=== PATIENT | male | born 1970 | race Caucasian/White ===

== ENCOUNTER → 2016-11-04 | Outpatient (CLI) | payer BC ==
[2016-11-04 08:51] VITALS: BP 157/87; PULSE 77; RESP 16; TEMP 97.6; BMI 50.3
--- NOTE | 2016-11-09 09:25 | P.GSHP ---
History of Present Illness H&P Date: 11/04/16 Chief Complaint: Morbid obesity BMI 50.4 Chief Complaint: Morbid obesity BMI 49.1 45 years old male with morbid obesity BMI 49.1, height 5 feet 8.5 inches, weight 148.68 KG presents for bariatric surgery consultation. Patient has elected to undergo laparoscopic Eliezer-en-Y gastric bypass .He has attended weight loss seminar. He has attempted nonsurgical weight loss with special diets and has lost some weight but is unable to maintain sustained results. His comorbid conditions include obstructive sleep apnea on CPAP, type 2 diabetes mellitus, hypertension, hypercholesterolemia. He is . He works in a psychiatric hospital. No children Preoperative visit #1, 06/17/2016, weight 148.6 KG, BMI 49.1 Preoperative visit #2, 11/09/2016, weight 152.5 KG, BMI 50.4 - Review of Systems Comment: Constitutional: Denies fever, weight loss or loss of appetite HEENT: No difficulty in vision or hearing. Denies dysphagia. Cardiovascular: Denies chest pain, palpitations, dizziness, shortness of breath. Respiratory: Long-standing asthma well controlled with rescue inhalers. Gastrointestinal: No recent change in bowel habits, no abdominal pain, no nausea or vomiting. Denies reflux symptoms and no postprandial right upper quadrant pain. Integumentary: No skin ulcers or rash Genitourinary: No urinary incontinence, hematuria or dysuria Neurologic: No seizures, denies weakness in upper or lower extremities Musculoskeletal: Knee pain, ankle pain and forefoot pain Past Medical History Past Medical History: Diabetes Mellitus, Hypertension, Osteoarthritis (OA), Sleep Apnea/CPAP/BIPAP Additional Past Medical History / Comment(s): USES CPAP. History of Any Multi-Drug Resistant Organisms: None Reported Past Surgical History: Appendectomy, Hernia Repair Additional Past Surgical History / Comment(s): Kidney stones, umbilical hernia repair Past Anesthesia/Blood Transfusion Reactions: No Reported Reaction Past Psychological History: No Psychological Hx Reported Smoking Status: Never smoker Past Alcohol Use History: Occasional Additional Past Alcohol Use History / Comment(s): 6 beers /month Past Drug Use History: None Reported - Past Family History Father Family Medical History: Cancer Additional Family Medical History / Comment(s): kidney stones Medications and Allergies Home Medications Medication Instructions Recorded Confirmed Type Liraglutide [Victoza 3-Dylan] 1.8 mg SQ DAILY 06/17/16 11/04/16 History Lisinopril [Prinivil] 20 mg PO DAILY 06/17/16 11/04/16 History Multivitamin [Men's Multi-Vitamin] 1 each PO DAILY 06/17/16 11/04/16 History Oxford-3 Fatty Acids/Fish Oil [Fish 1,000 mg PO DAILY 06/17/16 11/04/16 History Oil 1,000 mg Softgel] metFORMIN HCL [Glucophage] 1,000 mg PO BID 06/17/16 11/04/16 History Allergies Allergy/AdvReac Type Severity Reaction Status Date / Time No Known Allergies Allergy Verified 11/04/16 08:42 Surgical - Exam Vital Signs Temp Pulse Resp BP 97.6 F 77 16 157/87 11/04/16 08:43 11/04/16 08:43 11/04/16 08:43 11/04/16 08:43 General: Patient is alert and oriented to time, place and person and cooperative with exam. He is not in acute distress. HEENT: No pallor, no icterus, no thyroid enlargement, no cervical lymphadenopathy. Chest: Bilateral equal breath sounds present. No wheezes, no crackles. Cardiovascular: Regular rate and rhythm. Abdomen: Soft, nontender, nondistended. No right upper quadrant tenderness. Integumentary: Bilateral lower extremity chronic venous dermatitis. No active ulcers or discharge. Neurologic: Cranial nerves II-XII intact. Strength upper and lower extremities 5/5. No focal neurologic deficits. Gait is normal. Psychiatric: No anxiety or psychosis. No suicidal thoughts. Assessment and Plan (1) Hypertension Status: Acute (2) Morbid obesity with BMI of 45.0-49.9, adult Status: Acute (3) Type 2 diabetes mellitus Status: Acute (4) Sleep apnea Status: Acute (5) Sleep apnea with use of continuous positive airway pressure (CPAP) Status: Acute Plan: 1. A detailed discussion was held about the risks, benefits and potential complications of laparoscopic Eliezer-en-Y gastric bypass ncluding bleeding, infection, anastomosis leak, stenosis, DVT and PE. Patient demonstrated understanding and willing to undergo the procedure. Patient was explained about high-protein liquid diet 2 weeks prior to surgery 2. Formal Dietitian consult pending. Patient does snack often at night. He was recommended to drink protein shakes for snacks. I discussed about reducing the portion size, limiting refined carbohydrates and sugar and increase protein intake 3. Esophagogastroduodenoscopy with antral biopsy- chronic gastritis. H. pylori negative. No hiatal hernia 4. Baseline lab work ordered. 12-lead EKG ordered 5. Audio Visual Tech's recommendations and clearance awaited 6. Psychiatrist/ psychologist's recommendations noted 7. VTE risk score is 14. Patient will need perioperative and postoperative prophylactic low molecule weight heparin for VTE prophylaxis 8. A copy of surgical consent was given to the patient for review. Scheduled for laparoscopic Eliezer-en-Y gastric bypass on 11/16/[address] Rousseau to assist
== END | disposition home or self-care (01) ==
LOC: BARWHC3 08:36
PROVIDERS: ATTEND Surgery
DX: E66.01 Morbid (severe) obesity due to excess calories (principal); G47.30 Sleep apnea, unspecified; E11.9 Type 2 diabetes mellitus without complications; I10 Essential (primary) hypertension; Z68.42 Body mass index [BMI] 45.0-49.9, adult; Z79.4 Long term (current) use of insulin; Z79.899 Other long term (current) drug therapy
CPT/HCPCS: 99211

== ENCOUNTER → 2016-11-09 | Outpatient (CLI) | payer BC ==
[2016-11-09 11:41] VITALS: BMI 47.6
== END | disposition home or self-care (01) ==
LOC: BARWHC3 08:40
PROVIDERS: ATTEND Surgery
DX: E66.01 Morbid (severe) obesity due to excess calories (principal); Z71.3 Dietary counseling and surveillance; Z68.42 Body mass index [BMI] 45.0-49.9, adult
CPT/HCPCS: 97804

== ENCOUNTER → 2016-11-09 | Outpatient (CLI) | payer BC ==
[2016-11-09 12:45] LABS: Basophils % (A) 0 %; CH 28.1; Eosinophils # (A) 0.1 k/uL (0-0.7); Eosinophils % (A) 1 %; HCT 46.1 % (39.0-53.0); HGB 15.5 gm/dL (13.0-17.5); Luc # (Auto) 0.16; Luc % (Auto) 2; Lymphocytes # (A) 2.3 k/uL (1.0-4.8); Lymphocytes % (A) 28 %; MCH 27.7 pg (25.0-35.0); MCHC 33.5 g/dL (31.0-37.0); MCV 82.8 fL (80.0-100.0); Mean Platelet Volume 6.6; Monocytes # (A) 0.5 k/uL (0-1.0); Monocytes % (A) 6 %; Neutrophils # (A) 5.3 k/uL (1.3-7.7); Neutrophils % (A) 63 %; RBC 5.57 m/uL (4.30-5.90); RDW 14.1 % (11.5-15.5); WBC 8.3 k/uL (3.8-10.6); WBC (Perox) 8.47
[2016-11-09 12:54] LABS: ALT 64 U/L (21-72); AST 51 U/L (17-59); Alkaline Phosphatase 43 U/L (38-126); Anion Gap 12 mmol/L; Blood Urea Nitrogen 19 mg/dL (9-20); Calcium 10.2 mg/dL (8.4-10.2); Carbon Dioxide 25 mmol/L (22-30); Chloride 99 mmol/L (98-107); Glucose 101 mg/dL (74-99); Non-African American GFR(MDRD) >60 (>60 ml/min/1.73 sqM); Potassium 4.5 mmol/L (3.5-5.1); Sodium 136 mmol/L (137-145); Total Bilirubin 0.9 mg/dL (0.2-1.3); Total Protein 8.2 g/dL (6.3-8.2)
== END | disposition home or self-care (01) ==
LOC: LABPAT 12:06
PROVIDERS: ATTEND Surgery
DX: Z01.818 Encounter for other preprocedural examination (principal)
CPT/HCPCS: 80053; 85025

== ENCOUNTER 2016-11-16 10:21 | Inpatient (IN) | payer BC ==
[~2016-11-16 10:21] MED LIST: DEXAMETHASONE SOD PHOSPHATE 10 MG/ML 1 ML VIAL IV ONE; HYDROmorphone 1 MG/ML 1 ML SYRINGE IVP PRN; LIDOCAINE 1% 20 ML VIAL (10MG/ML) FOR IV START INTRADERMA PRN; MIDAZOLAM 2 MG/2 ML VIAL IV PRN; ONDANSETRON 4 MG/2 ML VIAL IVP ONE; SCOPOLAMINE 1.5MG/72HR PATCH TRANSDERM ONE; ceFAZolin 3 GM in SODIUM CHLORIDE 0.9% 100 ML IVPB ONE
[2016-11-16] MEDS: LACTATED RINGERS 1,000 ML IV SCH (10:46)
[2016-11-16 10:52] LABS: Glucose,Whole Blood 90 mg/dL (75-99)
[2016-11-16] MEDS ORDERED: CHLORHEXIDINE GLUCONATE 15 ML CUP MUCOUS MEM ONE (10:56)
[2016-11-16] MEDS ORDERED: AMPICILLIN-SULBACTAM 3 GM in SODIUM CHLORIDE 0.9% 100 ML IVPB ONE (10:56)
[2016-11-16] MEDS ORDERED: ENOXAPARIN 40 MG/0.4 ML SYRINGE SQ STA (11:00)
[2016-11-16] MEDS ORDERED: PANTOPRAZOLE 40 MG/10 ML VIAL IV STA (11:00)
[2016-11-16] MEDS ORDERED: MIDAZOLAM 2 MG/2 ML VIAL ONE (13:35)
[2016-11-16] MEDS ORDERED: ROCURONIUM BROMIDE 10 MG/ML 10 ML VIAL IV ONE (13:35)
[2016-11-16] MEDS ORDERED: SUCCINYLCHOLINE CHLORIDE 100 MG/5 ML SYR IV ONE (13:35)
[2016-11-16] MEDS ORDERED: HYDROmorphone (PF) 1 MG/ML ONE (13:35)
[2016-11-16] MEDS ORDERED: PHENYLEPHRINE-0.9% NACL SYG 1 MG/10 ML SYRINGE ONE (13:35)
[2016-11-16] MEDS ORDERED: fentaNYL (PF) 50 MCG/ML 2 ML AMP ONE (13:35)
[2016-11-16] MEDS ORDERED: LIDOCAINE 1% INJ 10MG/ML (20 ML MDV) ONE (13:35)
[2016-11-16] MEDS ORDERED: GLYCOPYRROLATE 0.2 MG/ML 2 ML VIAL ONE (13:35)
[2016-11-16] MEDS ORDERED: NEOSTIGMINE 1 MG/ML 10 ML VIAL ONE (13:35)
[2016-11-16] MEDS ORDERED: PROPOFOL 10 MG/ML 20 ML VIAL IV ONE (13:35)
[2016-11-16] MEDS ORDERED: BUPIVACAIN-EPI 0.25%-1:200,000 30 ML VIAL SQ ONE (14:03)
[2016-11-16] MEDS ORDERED: LACTATED RINGERS 1,000 ML IV ONE (15:58)
[2016-11-16] MEDS ORDERED: HYOSCYAMINE ORAL DROPS 1.875 MG/15 ML BOTTLE PO PRN (16:49)
[2016-11-16] MEDS ORDERED: diphenhydrAMINE 50 MG/ML 1 ML VIAL IVP PRN (16:49)
[2016-11-16] MEDS ORDERED: ONDANSETRON 4 MG/2 ML VIAL IVP PRN (16:49)
[2016-11-16] MEDS ORDERED: NALOXONE 0.4 MG/ML 1 ML VIAL IV PRN (16:49)
[2016-11-16] MEDS ORDERED: SIMETHICONE 40 MG/0.6 ML DROPS 2,000 MG/30 ML BOTTLE PO PRN (16:49)
[2016-11-16] MEDS ORDERED: ONDANSETRON 4 MG/2 ML VIAL IVP ONE (17:09)
[2016-11-16 17:12] LABS: Glucose,Whole Blood 177 mg/dL (75-99)
[2016-11-16] MEDS ORDERED: INSULIN LISPRO (humaLOG) 300 UNIT/3 ML VIAL SQ ONE (17:13)
[2016-11-16] MEDS: ACETAMINOPHEN IV (For NPO) 1,000 MG in EMPTY BAG 1 BAG IVPB ONE ×2 (17:29→17:43)
[2016-11-16] MEDS: HYDROmorphone 1 MG/ML 1 ML SYRINGE IVP PRN ×2 (18:25→21:37)
[2016-11-16 20:19] LABS: Glucose,Whole Blood 142 mg/dL (75-99)
[2016-11-16] MEDS: ALBUTEROL NEBULIZED 2.5 MG/3 ML INHALATION SCH (20:31)
[2016-11-16 22:30] VITALS: BMI 47.4
[2016-11-17] MEDS: metFORMIN 500 MG TAB PO SCH ×3 (00:31→18:25)
[2016-11-17] MEDS: HYDROmorphone 1 MG/ML 1 ML SYRINGE IVP PRN ×6 (00:32→21:41)
[2016-11-17 08:29] LABS: Basophils % (A) 0 %; CH 28.1; CHCM 34.2; Eosinophils % (A) 0 %; HCT 38.4 % (39.0-53.0); HGB 12.8 gm/dL (13.0-17.5); Luc # (Auto) 0.13; Luc % (Auto) 1; Lymphocytes # (A) 1.1 k/uL (1.0-4.8); Lymphocytes % (A) 10 %; MCH 27.5 pg (25.0-35.0); MCHC 33.3 g/dL (31.0-37.0); MCV 82.7 fL (80.0-100.0); Mean Platelet Volume 6.4; Monocytes # (A) 0.6 k/uL (0-1.0); Monocytes % (A) 6 %; Neutrophils # (A) 9.1 k/uL (1.3-7.7); Neutrophils % (A) 83 %; RBC 4.65 m/uL (4.30-5.90); RDW 14.1 % (11.5-15.5); WBC (Perox) 11.01
[2016-11-17 08:39] LABS: Anion Gap 10 mmol/L; Blood Urea Nitrogen 14 mg/dL (9-20); Calcium 8.9 mg/dL (8.4-10.2); Carbon Dioxide 22 mmol/L (22-30); Chloride 105 mmol/L (98-107); Magnesium 1.9 mg/dL (1.6-2.3); Non-African American GFR(MDRD) >60 (>60 ml/min/1.73 sqM); Phosphorous 2.8 mg/dL (2.5-4.5); Potassium 4.3 mmol/L (3.5-5.1); Sodium 137 mmol/L (137-145)
[2016-11-17 08:46] LABS: Glucose,Whole Blood 113 mg/dL (75-99)
[2016-11-17] MEDS ORDERED: NON-FORMULARY DRUG (Omega-3 Fatty Acids/Fish Oil [Fish Oil 1,000 Mg Softgel] 1 CAP) PO SCH (09:00)
[2016-11-17] MEDS: INSULIN LISPRO (humaLOG) 300 UNIT/3 ML VIAL SQ SCH ×4 (09:04→21:43)
[2016-11-17] MEDS: ALBUTEROL NEBULIZED 2.5 MG/3 ML INHALATION SCH ×4 (09:27→20:47)
--- NOTE | 2016-11-17 09:31 | FL ---
Single contrast upper GI EXAMINATION TYPE: FL UGI DATE OF EXAM: 11/17/2016 9:26 AM CLINICAL HISTORY: Status post Eliezer-en-Y gastric bypass COMPARISON: NONE Contrast: Omnipaque 350 50 mL The patient ingested contrast without difficulty or delay. Noted are postsurgical changes of Eliezer-en -Y gastric bypass. There is no evidence for leak or obstruction. Drainage catheter is in place. IMPRESSION: Post-surgical change of Eliezer-en-Y gastric bypass without evidence for obstruction or greg k at this point in time.
[2016-11-17] MEDS: LACTATED RINGERS 1,000 ML IV SCH ×4 (09:50→20:54)
[2016-11-17] MEDS: HYDROcodone/APAP 15 ML SOLUTION PO PRN ×2 (10:29→18:27)
[2016-11-17] MEDS: LISINOPRIL 20 MG TAB PO SCH (10:30)
[2016-11-17] MEDS: ENOXAPARIN 40 MG/0.4 ML SYRINGE SQ SCH ×2 (10:30→20:55)
[2016-11-17] MEDS: PANTOPRAZOLE 40 MG/10 ML VIAL IV SCH (10:31)
--- NOTE | 2016-11-17 10:44 | CONS ---
DATE OF CONSULTATION: 11/16/2016 REASON FOR CONSULTATION: Medical management requested by Dr. Montoya. CONSULTATION: This is a pleasant 46-year-old patient of Dr. Jacquelin Mccoy who has undergone a laparoscopic Eliezer-en-Y gastric bypass surgery. Patient also underwent lysis of adhesions. Post procedure, patient's is at the bedside. Having some pain, nausea, vomiting. Patient's chronic stable medical conditions include diabetes, hypertension, osteoarthritis, sleep apnea, uses CPAP machine and kidney stones. Currently no nausea or vomiting. REVIEW OF SYSTEMS: CONSTITUTIONAL: Tired. HEENT: None. RESPIRATORY: None. CARDIOVASCULAR: None. GASTROINTESTINAL: Abdominal pain. GENITOURINARY: None. MUSCULOSKELETAL: Pain in different joints. DERMATOLOGICAL: None. HEMATOLOGICAL: None. LYMPHATIC: None. PSYCHIATRY: None. NEUROLOGICAL: None. PAST HISTORY: Diabetes, hypertension, osteoarthritis, obstructive sleep apnea with CPAP, kidney stones. PAST SURGICAL HISTORY: Appendectomy, hernia repair, surgery for kidney stones, umbilical hernia repair. SOCIAL HISTORY: No smoking. Alcohol occasionally, that is six beers a month. Patient is employed. . FAMILY HISTORY: Cancer and kidney stones. HOME MEDICATIONS: 1. Glucophage 1000 mg p.o. b.i.d. 2. Fish oil 1 capsule p.o. daily. 3. Men's multivitamin 1 tablet p.o. daily. 4. Prinivil 20 mg p.o. daily. 5. Victoza 3-evert 1.8 mg subcu daily. ALLERGIES: None. On examination, temperature 98.4, pulse 76, respirations 16, blood pressure 119/58, pulse ox 95% on 3 L. GENERAL APPEARANCE: Obese, body mass index 43.6, lying in bed, awake. EYES: Pupils equal. Conjunctivae normal. HEENT: Oral cavity normal. NECK: Thick, short. JVD unable to assess. Mass not palpable. RESPIRATORY: Effort increased. LUNGS: Distant breath sounds. CARDIOVASCULAR: Heart sounds muffled. No edema. LYMPHATIC: No lymph node palpable in neck or axillae. PSYCHIATRY: Alert and oriented x3. Mood and affect normal. NEUROLOGICAL: Pupils equal. Cranial nerves grossly intact. Power and sensation ( ). ABDOMEN: Diffusely tender. Bowel sounds are sluggish. Liver and spleen not palpable. INVESTIGATIONS: Accu-Cheks are noted. ASSESSMENT: 1. Eliezer-en- Y gastric bypass surgery with lysis of adhesions. 2. Diabetes mellitus type 2. 3. Essential hypertension. 4. Obstructive sleep apnea. 5. Morbid obesity; body mass index of 43.6. PLAN: Diet will be advanced per Dr. Montoya. Accu-Cheks will be followed. Given that patient is not eating, we will hold off the Glucophage for right now. Patient may ( ) I reviewed his Prinivil and Victoza. Do expect sugars to eventually start coming down as patient loss weight and remains on a liquid diet. Care was discussed with the patient in detail and the . Thank you Dr. Montoya.
--- NOTE | 2016-11-17 10:57 | P.OP ---
Date of Procedure: 11/16/16 Preoperative Diagnosis: Morbid obesity BMI 50 Type 2 DM Obstructive sleep apnea Hypertension Hypercholesterolemia Postoperative Diagnosis: Morbid obesity BMI 50 Type 2 DM Obstructive sleep apnea Hypertension Hypercholesterolemia Umbilical hernia Procedure(s) Performed: Laparoscopic Eliezer -en Y gastric bypass Intraop EGD Laparoscopic lysis of adhesions Anesthesia: joanne GREWAL Surgeon: Catrina Montoya Computer Assembler #1: Roxy Severino Estimated Blood Loss (ml): 30 Pathology: none sent Condition: other (ASA 3) Disposition: PACU Indications for Procedure: 46 years old male with morbid obesity BMI more than 50 presents for laparoscopic Eliezer-en-Y gastric bypass. His comorbid conditions include type 2 diabetes mellitus, hypertension, hypercholesterolemia, obstructive sleep apnea on CPAP. Informed consent obtained and patient elected to undergo laparoscopic Eliezer-en-Y gastric bypass, possible open with intraoperative EGD. The risks, benefits and potential complications including bleeding, infection, anastomosis leak were discussed and patient elected to undergo the procedure Description of Procedure: The patient was brought to the operating room and placed in supine position with both arms out. General anesthesia with endotracheal intubation was performed as per anesthesia team. A Brown catheter was inserted using sterile aseptic precautions. Bilateral lower extremity SCDs were placed. Patient was secured to the operating table using to secure straps and a footboard was placed. Chlorhexidine was used to prep the skin followed by sterile drapes and [place]. A timeout was performed to verify correct patient and correct procedure. Patient was confirmed to receive perioperative IV antibiotics and Lovenox subcutaneous injection for VTE prophylaxis. A 1.5 cm skin incision was made in the left anterior axillary line below the costal margin and pneumoperitoneum was established to a pressure of 15 mm of Hg using a Veress needle. Patient tolerated the pneumoperitoneum well. A 10 mm trocar was loaded on a 5 mm 30 laparoscope and peritoneal cavity was entered using the Optiview technique. Additional 10 mm trocar was placed inferior and left of the umbilicus for a camera . Two 10 mm trocars working ports were placed : one at the level of falciform and the other in right lower quadrant. There were omental adhesions to anterior abdominal wall and umbilical hernia identified containing omentum which was reduced. At the site of prior open appendicectomy in right lower quadrant there were multiple bowel loops which were gently taken down using a combination of sharp dissection. The small bowel was run from ligament of Treitz to terminal ileum to ensure there was no kinks or adhesions. The abdominal cavity was inspected. Attention was directed towards creation of jejunojejunostomy. The omentum was reflected towards the upper abdomen and the transverse colon identified. The transverse mesocolon was elevated and ligament of Treitz identified. The small bowel was run 65 cm distal to the ligament of Treitz and was divided using Ethicon stapler 60 white load. There was noted bleeding noted from the cut end of the mesentery which was controlled with application of endoclips. A [place] drain was attached to the distal limb. The small bowel was run 130 cm distally from this point. It was oriented in C- configuration to avoid any torsion or kink. A seromuscular stitch of 3-0 silk was placed between the BP limb and the Eliezer limb to act as a traction suture. Controlled enterotomy was created in either small bowel limb using monopolar function of LigaSure advance. Care was taken not to backwall the bowel. Covidien stapler 60 mendoza load was fired in antegrade direction to create a bowy-mz-ifak jejunojejunostomy. Additional seromuscular stitch of 3-0 silk was placed which acted as a distal stay suture . Covidien stapler 45 mendoza load was fired in retrograde direction to create a 90 mm llmm-no-ilzw anastomosis. The 2 stay sutures were pulled up and final enterotomy was closed using Covidien stapler 60 mendoza load. The anastomosis was patent and without any tension. There was some bleeding noted from the staple line which was controlled with endoclips. The greater omentum was divided using LigaSure . Patient was then placed in reverse Trendelenburg. A 5 mm incision was made in the epigastrium to insert the liver retractor to retract the left lobe of the liver. There were scar tissue and stitches from prior lap band surgery. Decision was made to go distal to this suture line to create a long narrow pouch The angle of His was bluntly mobilized using retrogastric tunneling device .Fenestrated graspers were used to bluntly dissect and create retrogastric tunnel. Covidien 60 staplepurple load was fired . Additional two purple 60mm loads were used to create a 50 ml gastric pouch . A 25 mm Orvil was passed per orally by the anesthesia team. The orogastric blunt tip of the Orvil was positioned anterior to the staple line. A controlled opening was made in the gastric pouch using the monopolar function and Orvil tip was exteriorized. The orogastric tube was pulled without any tension till the Orvil stapler was identified. The suture was cut and the remaining tube was removed from the abdomen. The previously placed Rosa drain was identified and the Eliezer limb was brought up to the gastric pouch without any undue tension. The small bowel was opened up and left upper quadrant trocar site was upsized to a 15 mm. The 25 mm EEA was inserted into the abdomen after dilating the track with Suzie clamp. The EEA was easily inserted via the cut end of the Eliezer limb. The stapler was gradually opened till the orange ring was identified. The EEA stapler was fired after both ends of the stapler were locked in position and closed. The EEA was then removed from the abdomen. Both the anastomotic donuts were complete. A 60 mm Ethicon white load was used to divide the open end of the Eliezer limb. This segment of the small bowel along with Rosa drain was placed in an Endo Catch bag and was removed from the abdomen. A 15 mm balloon trocar was inserted to re-create pneumoperitoneum. The gastrojejunostomy anastomosis not show any evidence of kink or torsion. Using continuous sutures of 3-0 silk, the Warner defect between the transverse mesocolon and Eliezer limb was closed. The C loop configuration of Eliezer limb was checked. The mesentery defect between the jejunojejunostomy was closed using continuous sutures of 3-0 silk. This is to prevent potential internal hernias. An empty staple cartridge was placed distal to the gastrojejunostomy in the Eliezer limb. Dr. Severino proceeded with esophagogastrojejunoscopy. The abdominal cavity was filled with normal saline. No evidence of staple line bleeding. Both the afferent and efferent limbs of small bowel could be easily intubated. No anastomotic stricture. No air leak No air leak identified. The anastomosis was widely patent. The scope was then removed after suctioning the excess air. Tisseal was applied over the staple line. The 15 mm trocar site was closed with 2 trans-fascial stitches of 0 Vicryl which was placed using a Lonnie Mary device. The trocar site was copiously irrigated with 1 L of normal saline. All the trocar sites were closed with interrupted sutures of 3-0 Vicryl followed by running subcuticular stitches of 4-0 Monocryl. Dermabond skin glue was applied. The sponge, instrument and needle count were correct x2. Patient tolerated the procedure well and was taken to post anesthesia care unit in stable condition
[2016-11-17 12:18] LABS: Glucose,Whole Blood 142 mg/dL (75-99)
[2016-11-17] MEDS: MULTIVITAMINS, THERA 1 EACH TAB PO SCH (13:11)
[2016-11-17 17:35] LABS: Glucose,Whole Blood 124 mg/dL (75-99)
[2016-11-17 21:43] LABS: Glucose,Whole Blood 141 mg/dL (75-99)
[2016-11-18] MEDS: HYDROmorphone 1 MG/ML 1 ML SYRINGE IVP PRN ×2 (01:54→06:52)
[2016-11-18] MEDS: HYDROcodone/APAP 15 ML SOLUTION PO PRN ×4 (03:48→22:14)
[2016-11-18] MEDS: LACTATED RINGERS 1,000 ML IV SCH (04:02)
--- NOTE | 2016-11-18 06:30 | PN ---
DATE OF SERVICE: 11/17/2016 REASON FOR ADMISSION: Medical management requested by Dr. Montoya. INTERVAL HISTORY: This is a 46-year-old male who is status post laparoscopic Eliezer-en-Y gastric bypass surgery. Today patient is resting comfortably in bed, family at the bedside. No acute distress noted or voiced. Had a discussion regarding patient's insulin and the choices that were going to be made, Lantus versus home dose of oral medications. Patient is otherwise alert and oriented. No acute distress noted or voiced. Review of systems done for cardiovascular, GI, pulmonary with relevant findings as above. CURRENT MEDICATIONS: [place], albuterol sulfate, Lovenox, Dilaudid, hyoscyamine, Protonix. ( )
[2016-11-18] MEDS ORDERED: RX INFO: IV CONTRAST WAS GIVEN 1 EACH MISC MISCELLANE PRN (06:57)
--- NOTE | 2016-11-18 07:15 | PN ---
DATE OF SERVICE: 11/17/2016 REASON FOR ADMISSION: Medical management status post laparoscopic Eliezer-en-Y gastric bypass requested by Dr. Montoya. INTERVAL HISTORY: This is a 46-year-old male who has undergone a laparoscopic Eliezer-en-Y gastric bypass surgery. Today patient is awake, alert, lying in bed. No acute distress noted or voiced. No complaints. Discussion was held regarding Lantus versus Victoza and what our plan was for that. Lantus will be added to patient's regimen. Currently no nausea or vomiting. No acute distress noted or voiced. Review of systems done for constitutional, cardiovascular, GI, pulmonary with relevant findings as above. CURRENT MEDICATIONS: Albuterol, Benadryl, Lovenox, Dilaudid, Humalog, Zestril. PHYSICAL EXAMINATION: VITAL SIGNS: Temperature 97.0, pulse 90, respirations 24, blood pressure 121/77, oxygen saturation 92% on room air EYES: Pupils equal. Conjunctivae normal. NECK: JVD not raised. Mass not palpable. LUNGS: Distant bilaterally. RESPIRATORY: Effort normal, unlabored. CARDIOVASCULAR: First and second sounds noted. No edema. ABDOMEN: Soft, diffusely tender bowel sounds are sluggish. Liver and spleen not palpable. PSYCHIATRY: Alert and oriented x3. Mood and affect are appropriate for the situation. INVESTIGATIONS: White blood cell count 11.0, hemoglobin 12.8, platelet count 248, sodium 137, potassium 4.3, BUN 14, creatinine 0.87, glucose 142. ASSESSMENT: 1. Eliezer-en-Y gastric bypass surgery with lysis of adhesions. 2. Diabetes mellitus, type 2. 3. Essential hypertension. 4. Obstructive sleep apnea. 5. Morbid obesity; body mass index of 43.6. PLAN: Diet will be advanced per Dr. Dr. Montoya. Accu-Cheks will be followed. Due to the fact the patient continues to not eat food, we will hold Glucophage for right now. Will add Lantus insulin as well. Overall we expect her sugars eventually just fall in line as patient loses weight and continues on a liquid diet. Plan of care was discussed with the patient and family in detail. Patient was seen and examined by a nurse practitioner, Lina Curtis, and all elements of the case discussed with attending, Dr. Lopez.
[2016-11-18] MEDS ORDERED: BISACODYL 5 MG TABLET.DR PO PRN (08:00)
[2016-11-18] MEDS: INSULIN LISPRO (humaLOG) 300 UNIT/3 ML VIAL SQ SCH ×4 (08:08→20:29)
[2016-11-18 08:16] LABS: Glucose,Whole Blood 98 mg/dL (75-99)
[2016-11-18] MEDS: ALBUTEROL NEBULIZED 2.5 MG/3 ML INHALATION SCH ×4 (08:53→21:39)
--- NOTE | 2016-11-18 09:43 | CT ---
CT CHEST FOR PULMONARY EMBOLISM. EXAMINATION TYPE: CT angio chest DATE OF EXAM: 11/18/2016 8:46 AM INDICATION: Low oxygen sats, diaphoresis CT DLP: 687 mGycm, Automated exposure control for dose reduction was used. CONTRAST: Patient injected with 100 mL of Omnipaque 350. COMPARISON: NONE TECHNIQUE: CT of the chest is performed on a spiral scan at 2 mm thick sections. Study is performed with intravenous contrast timed for evaluation for pulmonary embolism. This will limit additional po rtions of the evaluation. 3-D MIP images reconstructed by the technologist are reviewed on the compu ter in the coronal and sagittal planes. FINDINGS: Opacification is suboptimal for pulmonary embolism evaluation. There is a suggestion of a partial harry ling defect within the left upper lobe pulmonary artery. Series 4 image 41. This could suggest some u nderlying segmental pulmonary artery thrombus. This potentially could be chronic. No mediastinal or hilar adenopathy enlarged by CT criteria is evident. The ascending aorta diameter at the level of the main pulmonary artery is 3.9 cm. The main pulmonary artery diameter at the bifur cation is 3.5 cm. There is a consolidation within the posterior medial right apex. There are cysts stranding areas of o pacity at the bilateral lung bases and within the lingula. Small bilateral pleural effusions are pres ent. Limited CT section through the upper abdomen are unremarkable. IMPRESSIONS: 1. Contrast timing is suboptimal for pulmonary artery thrombus evaluation. Obvious large filling defe cts are not evident. Small segmental and subsegmental defects potentially in the left upper lobe may be present. Chronic pulmonary emboli are not excluded from the differential. 2. Small bilateral pleural effusions with bibasilar streak atelectasis. 3. Consolidation medial right upper lobe. Correlate for atelectasis versus pneumonia.
[2016-11-18] MEDS: ENOXAPARIN 40 MG/0.4 ML SYRINGE SQ SCH ×2 (09:46→20:29)
[2016-11-18] MEDS: OXYMETAZOLINE 0.05% NASL SPRAY 15 ML NASAL SCH ×3 (09:46→22:14)
[2016-11-18] MEDS: PANTOPRAZOLE 40 MG/10 ML VIAL IV SCH (09:47)
[2016-11-18] MEDS: LISINOPRIL 20 MG TAB PO SCH (09:47)
[2016-11-18] MEDS: metFORMIN 500 MG TAB PO SCH (09:47)
[2016-11-18] MEDS ORDERED: OXYMETAZOLINE 0.05% NASL SPRAY 15 ML ONE (09:55)
--- NOTE | 2016-11-18 10:24 | PN ---
DATE OF SERVICE: 11/17/2016 PRESENTING COMPLAINT: Eliezer-en-Y gastric bypass surgery. INTERVAL HISTORY: Patient is status post Eliezer-en-Y gastric bypass surgery, tolerating clear liquids, is at the bedside. Patient has been in and out of bed. No nausea or vomiting. Review of systems done for constitutional, cardiovascular, GI, pulmonary; relevant findings as above. Current medications are reviewed. On examination, temperature 97, pulse 90, respirations 16, blood pressure 121/77, pulse ox 92% on room air. GENERAL APPEARANCE: Lying in bed, comfortable. EYES: Pupils equal, conjunctivae normal. NECK: JVD not raised. Mass not palpable. RESPIRATORY: Effort increased. LUNGS: Decreased breath sounds. CARDIOVASCULAR: Heart sounds muffled, edema. ABDOMEN: Soft. Mild tenderness. PSYCH: Alert and oriented x3. Mood and affect is normal. INVESTIGATIONS: White count 11, hemoglobin 12.8, potassium 4.3. ASSESSMENT: 1. Eliezer-en-Y gastric bypass surgery with lysis of adhesions. 2. Diabetes mellitus type 2, on oral hypoglycemic. 3. Essential hypertension. 4. Obstructive sleep apnea. 5. Morbid obesity, body mass index of 43.6. PLAN: Care was discussed with the patient and . Did talk about glucose control. Patient's Glucophage is being discontinued. The patient may take the insulin Victoza. Will give 12 units of Lantus and keep an eye on the sugars. Thank you, Dr. Montoya.
[2016-11-18 12:14] LABS: Glucose,Whole Blood 145 mg/dL (75-99)
--- NOTE | 2016-11-18 12:44 | PN ---
DATE OF SERVICE: 11/18/2016 PRESENTING COMPLAINT: Short of breath. INTERVAL HISTORY: This is a patient status post Eliezer-en-Y gastric bypass surgery. Early this morning I was called and patient was slightly short of breath and congested. I ordered some Afrin spray. The patient's pulse ox did drop. I was concerned for PE so I ordered a CT chest. Patient is awaiting the results. is at the bedside. Review of systems done for constitutional, cardiovascular, GI, pulmonary; relevant findings as above. The patient is on clear liquids. Current medications are reviewed. On examination, temperature 98.2, pulse 84, respirations 16, blood pressure 162/105, pulse ox 90% on 6 L. GENERAL APPEARANCE: Sitting up edge of the bed, tired appearing. EYES: Pupils equal. Conjunctivae normal. NECK: JVD unable to assess. Mass not palpable. RESPIRATORY: Effort increased. LUNGS: Distant breath sounds. CARDIOVASCULAR: Heart sounds muffled, no edema. ABDOMEN: Mild tenderness, soft. Bowel sounds are present. PSYCHIATRY: Alert and oriented x3. Mood and affect normal. INVESTIGATIONS: Accu-Cheks are noted. ASSESSMENT: 1. Shortness of breath and decrease in pulse ox. This could be simply from ( ), but at the same time I need to rule out a pulmonary embolism. 2. Eliezer-en-Y gastric bypass surgery with lysis of adhesions. 3. Diabetes mellitus type 2. 4. Essential hypertension. 5. Obstructive sleep apnea. 6. Morbid obesity, body mass index 43.6. 7. Possibly obesity hypoventilation syndrome. PLAN: CT scan of the chest has been ordered. Other medications and treatment plans to continue. Care was discussed with patient and and did talk to Dr. Montoya.
[2016-11-18] MEDS: MULTIVITAMINS, THERA 1 EACH TAB PO SCH (13:03)
--- NOTE | 2016-11-18 13:20 | XR ---
EXAMINATION TYPE: XR chest 2V DATE OF EXAM: 11/18/2016 12:07 PM COMPARISON: NONE INDICATION: Short of breath TECHNIQUE: Single frontal view of the chest is obtained. FINDINGS: The heart size is normal. The pulmonary vasculature is normal. Posterior left lung base infiltrate appears to be present. Minimal left pleural effusion may be prese nt. Lungs are otherwise clear. IMPRESSION: 1. Left lower lobe infiltrate. Correlate for atelectasis and pneumonia. Small left pleural effusion m ay be present.
[2016-11-18] MEDS ORDERED: hydrALAZINE HCL 20 MG/ML 1 ML VIAL IVP STA (15:08)
--- NOTE | 2016-11-18 16:01 | P.PN ---
Subjective 46-year-old male being seen and examined is postop day 2 laparoscopic renu-en-y gastric bypass for morbid obesity BMI 50 procedure done on October 17 patient did undergo an upper GI and the it showed no evidence of obstruction or leak patient developed on November 18 an episode of low oxygen saturation feeling diaphoretic. CAT scan of the chest was ordered. And a pulmonary consultation requested. There are small bilateral pleural effusions with atelectasis bilaterally. Currently patient is sitting up on the edge of the bed and with coaching can achieve 1500 on the incentive spirometer. Pulse ox sat on 4 L showing 91% patient states breathing feels improved Objective - Vital Signs Vital signs: Vital Signs Temp 97.1 F L 11/18/16 15:03 Pulse 103 H 11/18/16 15:03 Resp 20 11/18/16 11:08 BP 172/105 11/18/16 15:03 Pulse Ox 91 L 11/18/16 15:03 Intake & Output 11/17/16 11/18/16 11/18/16 18:59 06:59 18:59 Intake Total 750 1000 Balance 750 1000 Weight 150 kg Intake: Intake, IV Titration 750 700 Amount Lactated Ringers 1,000 ml 750 700 @ 100 mls/hr IV .Q10H NIRMAL Rx#:[id number] Oral 300 Other: Voiding Method Toilet # Voids 1 - Exam Physical exam 46-year-old male postop gastric bypass surgery pleasant oriented 3 appearing in no acute distress Lungs diminished at the bases sitting up on the edge of the bed using an incentive spirometer can achieve 1500 states breathing feels improved currently on a nasal cannula 4 L no cough noted Heart S1-S2 audible and regular Abdomen obese soft nontender surgical sites benign no redness states passing gas no difficulty in urinating tolerating the diet Extremities no edema noted - Labs CBC & Chem 7: 11/17/16 07:36 11/17/16 07:36 Labs: Abnormal Lab Results - Last 24 Hours (Table) 11/17/16 11/17/16 11/18/16 Range/Units 17:23 21:31 12:12 POC Glucose (mg/dL) 124 H 141 H 145 H (75-99) mg/dL Assessment and Plan Plan: Impression Postop 16 of November laparoscopic renu-en-y gastric bypass with lysis of adhesions for morbid obesity BMI 50 Obstructive sleep apnea with CPAP therapy Hyperlipidemia Hypertension essential benign Dyslipidemia Type 2 diabetes on an oral hypoglycemic agent at home CAT scan of the chest for low oxygen saturation done on November 18 no evidence of acute pulmonary emboli Plan Await pulmonology's eval Resume home meds as appropriate Encourage the use of the incentive spirometer use every 1 hour while awake Encourage patient to increase activity level Continue current aerosol bronchodilators DVT and GI prophylaxis Monitor blood sugars continue with Humalog coverage The above dictated assessment and findings were discussed with dr romero . Impression and the plan of care have been dictated as directed. Priya Senior nurse practitioner acting as a scribe for dr romero
[2016-11-18] MEDS ORDERED: hydrALAZINE HCL 20 MG/ML 1 ML VIAL IVP PRN (16:51)
[2016-11-18 17:17] LABS: Glucose,Whole Blood 133 mg/dL (75-99)
--- NOTE | 2016-11-18 18:04 | P.CNPUL ---
History of Present Illness Consult date: 11/18/16 Reason for consult: hypoxemia History of present illness: 46-year-old male patient with morbid obesity, obstructive sleep apnea who underwent a Eliezer-en-Y gastric bypass surgery for morbid obesity. The patient also underwent lysis of abdominal adhesions. I was asked even with this patient postop knowing that the patient developed hypoxemia which progressively got worse to the point where the patient at one point was placed on 6 L of oxygen nasal cannula. Earlier this morning, the patient was getting up and moving around and he became more short of breath and he panicked and became quite anxious. Note that as part of further workup, a CT angios the chest was ordered and the findings were negative for pulmonary embolism. The contrast itself was suboptimal yet there was no evidence of any filling defects. At the same time, there was significant atelectatic changes in lung bases bilaterally along with small bilateral pleural effusion. The dependent lung bases were quite atelectatic which could have contributed to this patient's hypoxemia. The patient was placed on aggressive I asked treatments. The patient is currently doing better is currently down to 2 L of oxygen nasal cannula. Breath sounds in the lung bases are quite diminished on physical examination. Noted the patient has not been able to use his CPAP for the past 2 days. I checked his CPAP machine and the patient has an auto CPAP with a min pressure of 7 and pressure of 14 and he is utilizing a nose mask. Note that clinic as the patient already feeling better. He is not having any major stroke difficulties. His postoperative upper GI series showed no evidence of any obstruction or leak. His blood work from yesterday are all within normal limits. Hemoglobin is at 12.8. No history of any DVTs. No pulmonary embolism. No history of any him. No asthma. No emphysema. He is afebrile. He is hemodynamically stable at this point. Note that the patient was placed on Lovenox for DVT prophylaxis a dose of 40 mg subcu every 12 hours. He is using Dilaudid for pain control. Review of Systems All systems: negative Constitutional: Denies chills, Denies fever Eyes: denies blurred vision, denies pain Ears, nose, mouth and throat: Denies headache, Denies sore throat Cardiovascular: Denies chest pain, Denies shortness of breath Respiratory: Denies cough Gastrointestinal: Denies abdominal pain, Denies diarrhea, Denies nausea, Denies vomiting Musculoskeletal: Denies myalgias Integumentary: Denies pruritus, Denies rash Neurological: Denies numbness, Denies weakness Psychiatric: Denies anxiety, Denies depression Endocrine: Denies fatigue, Denies weight change Past Medical History Past Medical History: Diabetes Mellitus, Hypertension, Osteoarthritis (OA), Sleep Apnea/CPAP/BIPAP Additional Past Medical History / Comment(s): Morbid obesity, obstructive sleep apnea maintained on CPAP, nephrolithiasis History of Any Multi-Drug Resistant Organisms: None Reported Past Surgical History: Appendectomy, Hernia Repair Additional Past Surgical History / Comment(s): surg. for Kidney stones, umbilical hernia repair Past Anesthesia/Blood Transfusion Reactions: No Reported Reaction Past Psychological History: No Psychological Hx Reported Smoking Status: Never smoker Past Alcohol Use History: Occasional Additional Past Alcohol Use History / Comment(s): 6 beers /month Past Drug Use History: None Reported - Past Family History Father Family Medical History: Cancer Additional Family Medical History / Comment(s): kidney stones Medications and Allergies Home Medications Medication Instructions Recorded Confirmed Type Liraglutide [Victoza 3-Dylan] 1.8 mg SQ DAILY 06/17/16 11/16/16 History Lisinopril [Prinivil] 20 mg PO DAILY 06/17/16 11/16/16 History Multivitamin [Men's Multi-Vitamin] 1 tab PO DAILY 06/17/16 11/16/16 History Hitchcock-3 Fatty Acids/Fish Oil [Fish 1 cap PO DAILY 06/17/16 11/16/16 History Oil 1,000 mg Softgel] metFORMIN HCL [Glucophage] 1,000 mg PO BID 06/17/16 11/16/16 History Allergies Allergy/AdvReac Type Severity Reaction Status Date / Time No Known Allergies Allergy Verified 11/16/16 10:43 Physical Exam Vitals: Vital Signs Temp Pulse Pulse Pulse Resp BP Pulse Ox 11/18/16 16:59 90 11/18/16 16:50 88 11/18/16 16:48 103 H 18 150/88 94 L 11/18/16 15:03 97.1 F L 103 H 172/105 91 L 11/18/16 12:30 87 11/18/16 12:20 91 11/18/16 11:08 97 20 95 11/18/16 11:02 97.7 F 94 164/106 96 11/18/16 09:17 94 L 11/18/16 09:11 92 11/18/16 08:53 88 11/18/16 07:45 98.2 F 84 162/105 90 L 11/18/16 02:40 94 L 11/18/16 02:00 97.7 F 91 16 157/92 91 L 11/17/16 21:01 91 11/17/16 20:49 90 11/17/16 19:58 97.9 F 93 17 120/70 92 L Intake and Output 11/18/16 11/18/16 11/18/16 06:59 14:59 22:59 Intake Total 1000 Balance 1000 Intake: Intake, IV Titration 700 Amount Lactated Ringers 1,000 ml 700 @ 100 mls/hr IV .Q10H NIRMAL Rx#:[id number] Oral 300 Other: # Voids 1 Morbidly obese, comfortable. No acute distress.Head exam was generally normal. There was no scleral icterus or corneal arcus. Mucous membranes were moist.Neck was supple and without jugular venous distension, thyromegaly, or carotid bruits. Carotids were easily palpable bilaterally. There was no adenopathy. The patient has a Mallampati class IV with significant crowding of the posterior oropharynx. Lung sounds are diminished in lung bases bilaterally. No wheezes or rhonchi or any crackles.Cardiac exam revealed the PMI to be normally situated and sized. The rhythm was regular and no extrasystoles were noted during several minutes of auscultation. The first and second heart sounds were normal and physiologic splitting of the second heart sound was noted. There were no murmurs, rubs, clicks, or gallops. Abdomen is soft and nontender. There is no direct tenderness rebound tensile guarding. Surgical wound site is dry clean and intact. Bowel sounds are hypoactive at the present.Examination of the extremities revealed easily palpable radial, femoral and pedal pulses. There was no cyanosis, clubbing or edema. Results - Laboratory Findings CBC and BMP: 11/17/16 07:36 11/17/16 07:36 Abnormal lab findings: Abnormal Labs 11/16/16 11/16/16 11/17/16 17:09 20:19 07:36 WBC 11.0 H Hgb 12.8 L Hct 38.4 L Neutrophils # 9.1 H POC Glucose (mg/dL) 177 H 142 H 11/17/16 11/17/16 11/17/16 08:44 12:05 17:23 WBC Hgb Hct Neutrophils # POC Glucose (mg/dL) 113 H 142 H 124 H 11/17/16 11/18/16 11/18/16 21:31 12:12 17:12 WBC Hgb Hct Neutrophils # POC Glucose (mg/dL) 141 H 145 H 133 H - Diagnostic Findings CT scan - chest: image reviewed Assessment and Plan Plan: Assessment 1 postoperative hypoxemia most likely on the basis of extensive bibasilar pulmonary atelectatic changes and small better pleural effusion. This is probably due to a combination of morbid obesity, postsurgical changes in lung bases and shallow inspiratory efforts postop. The patient was improving and currently is on 2 L of oxygen by nasal cannula. CT of the chest was reviewed and there is no convincing evidence of pulmonary embolism. The findings are more consistent with atelectatic changes at the current following surgery. 2 morbid obesity status post Eliezer-en-Y gastric bypass surgery 3 obstructive sleep apnea maintained on auto CPAP unit between a pressure of 7 and 14 4 nephrolithiasis 5 hypertension Plan Aggressive use of incentive spirometer. Ablate the patient the hallway. Wean off FiO2 as tolerated to maintain a saturation above 90%. Utilize CPAP overnight at the same settings and allow oxygen at 2 L/m after to be attached to his tubing. The patient was reassured. No need for any long-term and to coagulation. Continue Lovenox for DVT prophylaxis. We'll continue to follow. No further workup is needed at this point.
[2016-11-18 20:12] LABS: Glucose,Whole Blood 132 mg/dL (75-99)
[2016-11-19] MEDS: HYDROcodone/APAP 15 ML SOLUTION PO PRN (05:04)
[2016-11-19 07:13] VITALS: BP 155/59; TEMP 98.2
[2016-11-19] MEDS: ALBUTEROL NEBULIZED 2.5 MG/3 ML INHALATION SCH ×2 (07:18→13:45)
[2016-11-19 07:30] VITALS: PULSE 76
[2016-11-19] MEDS: INSULIN LISPRO (humaLOG) 300 UNIT/3 ML VIAL SQ SCH ×2 (08:01→14:02)
[2016-11-19] MEDS: ENOXAPARIN 40 MG/0.4 ML SYRINGE SQ SCH (09:20)
[2016-11-19] MEDS: PANTOPRAZOLE 40 MG/10 ML VIAL IV SCH (09:20)
[2016-11-19] MEDS: LISINOPRIL 20 MG TAB PO SCH (09:20)
[2016-11-19] MEDS: OXYMETAZOLINE 0.05% NASL SPRAY 15 ML NASAL SCH (09:21)
[2016-11-19 11:18] VITALS: RESP 18
--- NOTE | 2016-11-19 11:41 | PN ---
DATE OF SERVICE: 11/19/2016 PRESENTING COMPLAINT: Short of breath. INTERVAL HISTORY: The patient is status post Eliezer-en-Y gastric bypass surgery. Patient had desaturated, now doing much better, up and about, down to 2 L of oxygen, actually feels much better. Gasping is actually improving. Seen by pulmonary. They think just simply atelectasis. Overall patient feels much better. Review of systems done for constitutional, cardiovascular, GI, pulmonary; relevant findings as above. Current medications are reviewed. On examination, temperature 98.2, pulse 83, respiratory rate 16, blood pressure 155/59, pulse ox 96% on room air. GENERAL APPEARANCE: Sitting up on chair, comfortable. EYES: Pupils equal. Conjunctivae normal. NECK: JVD not raised. Mass not palpable. RESPIRATORY: Effort normal. LUNGS: Decreased distant breath sounds. CARDIOVASCULAR: Heart sounds muffled, no edema. ABDOMEN: Mild tenderness. Soft. Bowel sounds are present. PSYCHIATRY: Alert and oriented x3. Mood and affect normal. INVESTIGATIONS: No blood work from today. Accu-Cheks are noted. ASSESSMENT: 1. Some shortness of breath probably from atelectasis. Overall patient doing much better. Per Pulmonary, no pulmonary embolism, I feel the same. 2. Eliezer-en-Y gastric bypass surgery and lysis of adhesions. 3. Diabetes mellitus type 2. Patient to hold off his subcu injection and metformin. 4. Essential hypertension. 5. Obstructive sleep apnea. 6. Morbid obesity; body mass index of 43.6. 7. Possibly obesity hypoventilation syndrome. 8. Postoperative atelectasis. PLAN: Care was discussed with the patient and in detail. Keep a close eye on Accu-Cheks. He should follow with his family doctor. Thank you Dr. Montoya.
[2016-11-19 11:43] LABS: Glucose,Whole Blood 133 mg/dL (75-99)
--- NOTE | 2016-11-19 11:49 | P.DS ---
Providers Date of admission: 11/16/16 10:21 Expected date of discharge: 11/19/16 Attending physician: Catrina Romero Consults: 11/16/16 16:52 Consult Physician Routine Consulting Provider: Hung Lopez Consult Reason/Comments: medical management Do you want consulting provider notified?: Yes 11/18/16 09:50 Consult Physician Routine Consulting Provider: Denisse Fry Consult Reason/Comments: Desaturation Do you want consulting provider notified?: Yes Primary care physician: Jacquelin Mccoy Hospital Course: 46-year-old male presented on an elective basis to undergo laparoscopic renu-en -y gastric bypass for morbid obesity BMI 50 procedure done on October 17 patient did undergo an upper GI postprocedure on november 17 it showed no evidence of obstruction or leak patient developed on November 18 an episode of low oxygen saturation feeling diaphoretic. CAT scan of the chest was ordered. a pulmonary consultation requested. There are small bilateral pleural effusions with atelectasis bilaterally. Pulmonary review the CAT scan of the chest felt there was no evidence of a pulmonary emboli findings consistent with atelectatic changes postop following surgery patient was evaluated for home O2. On 2 L at rest sats were 96% and on room air with activity pulse ox sats were 96% the lowest sat was 91% after activity. Patient was able to use the incentive spirometer quit achieve 15 102,000 patient stated that he did not feel short of breath. Patient was felt to be appropriate to proceed with a discharge to home Impression discharge diagnosis Impression Postop 16 of November laparoscopic renu-en-y gastric bypass with lysis of adhesions for morbid obesity BMI 50 Obstructive sleep apnea with CPAP therapy Hyperlipidemia Hypertension essential benign Dyslipidemia Type 2 diabetes on an oral hypoglycemic agent at home CAT scan of the chest for low oxygen saturation done on November 18 no evidence of acute pulmonary emboli consistent with atelectatic changes The above dictated assessment and findings were discussed with dr romero . Impression and the plan of care have been dictated as directed. Priya Senior nurse practitioner acting as a scribe for dr romero Plan - Discharge Summary New Discharge Prescriptions: HYDROcodone/APAP [Dedham Elixir 7.5-325Mg/15Ml] 30 ml PO Q6HR PRN #1000 dose PRN Reason: Severe Pain Discharge Medication List Liraglutide [Victoza 3-Dylan] 1.8 mg SQ DAILY 06/17/16 [History] Lisinopril [Prinivil] 20 mg PO DAILY 06/17/16 [History] Multivitamin [Men's Multi-Vitamin] 1 tab PO DAILY 06/17/16 [History] Darling-3 Fatty Acids/Fish Oil [Fish Oil 1,000 mg Softgel] 1 cap PO DAILY [History] HYDROcodone/APAP [Dedham Elixir 7.5-325Mg/15Ml] 30 ml PO Q6HR PRN #1000 dose [Rx] Follow up Appointment(s)/Referral(s): Catrina Romero MD [STAFF PHYSICIAN] - 11/25/16 9:00 am (PT will be seen at the [facility] located at [facility] ) Jacquelin Mccoy MD [Primary Care Provider] - 12/02/16 9:45 am Patient Instructions/Handouts: Nutrition after Bariatric Surgery (DC), Renu-en -Y Gastric Bypass (DC) Discharge Disposition: HOME SELF-CARE
[2016-11-19] MEDS: NON-FORMULARY DRUG (Liraglutide [Victoza 3-Pak] 1.8 MG) SQ SCH (14:02)
--- NOTE | 2016-11-22 12:48 | CDI ---
In responding to this query, please exercise your independent professional judgment. The [facility] Coding Staff and Clinical Documentation Specialists appreciate your assistance in clarifying documentation, maintaining compliance with coding guidelines, accurately documenting patients condition and capturing severity of illness. The fact that a question is asked does not imply that any particular answer is desired or expected. Communication forms are a method of clarifying documentation and are not made part of the Legal Health Record. Thank you in advance for your clarification. Last Revision, May 2015 Date: 11/22/2016 12:33:00 PM From: Elva Herrera, Bilingual Account Manager Admit Date: 11/16/2016 10:21:00 AM Patient Name: Salvador Huff Visit Number: [id number] Discharge Date: Dr. Catrina Montoya Patient presented for bariatic surgery. On November 18, Mr. Pineda had an episode of low oxygen saturation, shortness of breath and feeling diaphoretic. Pulse ox sat on 4 ltr showing 91% CAT scan of the chest was ordered with showed small bilateral pleural effusions and atelectasis bilaterally. Spirometer was encouraged and O2 down to 2 Ltr by discharge. Please clarify if the documented post-operative atelectasis is: An expected post-procedural or post-surgical condition Integral to the procedure Inherent to the procedure An unexpected post-procedural or post-surgical condition related to surgical care Other, please specify Clinically unable to determine Please document in your progress notes and discharge summary in order to capture severity of illness and risk of mortality. Include clinical findings that support your diagnosis. FYI: Press F11 to launch patient chart. Place X here if this finding has no clinical significance, is not applicable or if you are not able to provide any additional documentation. RISA
--- NOTE | 2016-12-08 16:03 | CDI ---
Date: 11/22/2016 12:33:00 PM From: Jocelyn Eckert Phone: Admit Date: 11/16/2016 10:21:00 AM Patient Name: Salvador Huff Visit Number: [id number] Discharge Date: Dr. Catrina Montoya Date: 11/22/2016 12:33:00 PM From: Elva Herrera, Gear Design Engineer Admit Date: 11/16/2016 10:21:00 AM Patient Name: Salvador Huff Visit Number: [id number] Discharge Date: Dr. Catrina Montoya Patient presented for bariatic surgery. On November 18, Mr. Pineda had an episode of low oxygen saturation, shortness of breath and feeling diaphoretic. Pulse ox sat on 4 ltr showing 91% CAT scan of the chest was ordered with showed small bilateral pleural effusions and atelectasis bilaterally. Spirometer was encouraged and O2 down to 2 Ltr by discharge. Please clarify if the documented post-operative atelectasis is: An expected post-procedural or post-surgical condition Integral to the procedure Inherent to the procedure An unexpected post-procedural or post-surgical condition related to surgical care Other, please specify Clinically unable to determine Please document in your progress notes and discharge summary in order to capture severity of illness and risk of mortality. Include clinical findings that support your diagnosis. FYI: Press F11 to launch patient chart. RISA
== END 2016-11-19 14:10 | disposition home health service (06) | DRG 620 ==
LOC: 2ORWHC 10:21 → 3SUR 17:11
PROVIDERS: ADMIT Surgery; ATTEND Surgery
PROC: 0WQF4ZZ Repair Abdominal Wall, Percutaneous Endoscopic Approach (ICD-10-PCS; principal; 2016-11-16 12:10)
PROC: 0D164ZA Bypass Stomach to Jejunum, Percutaneous Endoscopic Approach (ICD-10-PCS; principal; 2016-11-16 12:10)
DX: E66.01 Morbid (severe) obesity due to excess calories (principal); J98.11 Atelectasis; J90 Pleural effusion, not elsewhere classified; I10 Essential (primary) hypertension; E11.9 Type 2 diabetes mellitus without complications; E78.00 Pure hypercholesterolemia, unspecified; E78.5 Hyperlipidemia, unspecified; G47.33 Obstructive sleep apnea (adult) (pediatric); K42.9 Umbilical hernia without obstruction or gangrene; M19.90 Unspecified osteoarthritis, unspecified site; Z68.43 Body mass index [BMI] 50.0-59.9, adult; Z79.84 Long term (current) use of oral hypoglycemic drugs; Z79.899 Other long term (current) drug therapy; Z87.442 Personal history of urinary calculi; R09.02 Hypoxemia
CPT/HCPCS: 71020; 71275; 74240; 80051; 80053; 82310; 82565; 83735; 84100; 84520; 85025; 94640; 94660; 94667; 97804

== ENCOUNTER → 2016-11-25 | Outpatient (CLI) | payer BC ==
--- NOTE | 2016-11-19 15:11 | P.PN ---
Subjective The patient is seen again today 11/19/2016 in follow-up on the surgical floor. He was seen and evaluated by Dr. Fry initially yesterday after he developed hypoxemia following his Eliezer-en-Y gastric bypass procedure. He does have a history of obstructive sleep apnea and utilizes his CPAP machine and had been wearing that here as well. He is doing much better today. He is awake and alert in no acute distress. He's been up ambulating in the hallway on room air and maintaining O2 saturations in the 90s. He denies any shortness of breath, cough or congestion. He is working well with the incentive spirometer. Objective - Exam GENERAL EXAM: Morbidly obese. Alert, active, comfortable in no apparent distress. HEAD: Normocephalic. EYES: Normal reaction of pupils, equal size. NOSE: Clear with pink turbinates. THROAT: There is crowding of posterior pharynx. No erythema or exudates. NECK: Short. No masses, no JVD. CHEST: No chest wall deformity. LUNGS: Equal air entry with no crackles, wheeze, rhonchi or dullness. CVS: S1 and S2 normal with no audible mumurs, regular rhythm. ABDOMEN: No hepatosplenomegaly, normal bowel sounds, no guarding or rigidity. Incisions are clean dry and well approximated. SPINE: No scoliosis or deformity SKIN: No rashes CENTRAL NERVOUS SYSTEM: No focal deficits, tone is normal in all 4 extremities. Extremities: There is no significant peripheral edema. No clubbing, no cyanosis. Peripheral pulses are intact. Assessment and Plan Plan: Impression: #1 Postoperative hypoxemia most likely on the basis of extensive bibasilar pulmonary atelectatic changes and small bilateral pleural effusions. This is secondary to combination of morbid obesity, postsurgical changes in the lungs and shallow inspiratory efforts postoperatively. The patient has recovered and is maintaining good O2 saturations in the 90s on room air. #2 Morbid obesity, status post Eliezer-en-Y gastric bypass surgery. #3 Obstructive sleep apnea, maintained on auto CPAP between a pressure of 7 and 14. #4 Nephrolithiasis. #5 Hypertension. Plan: The patient was seen and evaluated by Dr. Fry. He is cleared for discharge from the pulmonary standpoint. He is often an appointment with Dr. Fry regarding his CPAP settings as they were adjusted yesterday and he seemed to be tolerating that better.
[2016-11-25 10:53] VITALS: BMI 45.4
[2016-11-25 11:10] VITALS: BP 128/70; PULSE 67; TEMP 97.8
[2016-11-25 11:54] LABS: CH 28.1; CHCM 34.1; HCT 40.4 % (39.0-53.0); HDW 3.04; HGB 13.4 gm/dL (13.0-17.5); MCH 27.4 pg (25.0-35.0); MCHC 33.2 g/dL (31.0-37.0); MCV 82.6 fL (80.0-100.0); Mean Platelet Volume 6.2; RBC 4.89 m/uL (4.30-5.90); RDW 13.9 % (11.5-15.5); WBC 8.2 k/uL (3.8-10.6)
[2016-11-25 12:14] LABS: ALT 94 U/L (21-72); AST 56 U/L (17-59); Alkaline Phosphatase 57 U/L (38-126); Anion Gap 11 mmol/L; Blood Urea Nitrogen 13 mg/dL (9-20); Calcium 9.6 mg/dL (8.4-10.2); Carbon Dioxide 27 mmol/L (22-30); Chloride 101 mmol/L (98-107); Glucose 99 mg/dL (74-99); Non-African American GFR(MDRD) >60 (>60 ml/min/1.73 sqM); Sodium 139 mmol/L (137-145); Total Bilirubin 0.9 mg/dL (0.2-1.3); Total Protein 6.6 g/dL (6.3-8.2)
[2016-11-25 12:25] LABS: Prealbumin 17 mg/dL (18-36)
--- NOTE | 2016-12-30 14:26 | P.PN ---
Subjective Principal diagnosis: S/P gastric bypass 46 years old male with morbid obesity BMI 49.1, height 5 feet 8.5 inches, weight 148.68 KG status post laparoscopic Eliezer-en-Y gastric bypass .Pain is well controlled. No nausea or vomiting. No chest pain/SOB. Tolerating liquids . His comorbid conditions include obstructive sleep apnea on CPAP, type 2 diabetes mellitus, hypertension, hypercholesterolemia. He is . 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 Denies dysphagia. Cardiovascular: Denies chest pain, palpitations, dizziness, shortness of breath. Respiratory: Long-standing asthma well controlled with rescue inhalers. Gastrointestinal: No recent change in bowel habits, no abdominal pain, no nausea or vomiting. Denies reflux symptoms and no postprandial right upper quadrant pain. Integumentary: No skin ulcers or rash Genitourinary: No urinary incontinence, hematuria or dysuria Neurologic: No seizures, denies weakness in upper or lower extremities Musculoskeletal: Knee pain, ankle pain and forefoot pain Past Medical History Past Medical History: Diabetes Mellitus, Hypertension, Osteoarthritis (OA), Sleep Apnea/CPAP/BIPAP Additional Past Medical History / Comment(s): USES CPAP. History of Any Multi-Drug Resistant Organisms: None Reported Past Surgical History: Appendectomy, Hernia Repair Additional Past Surgical History / Comment(s): Kidney stones, umbilical hernia repair Past Anesthesia/Blood Transfusion Reactions: No Reported Reaction Past Psychological History: No Psychological Hx Reported Smoking Status: Never smoker Past Alcohol Use History: Occasional Additional Past Alcohol Use History / Comment(s): 6 beers /month Past Drug Use History: None Reported - Past Family History Father Family Medical History: Cancer Additional Family Medical History / Comment(s): kidney stones Medications and Allergies Home Medications Medication Instructions Recorded Confirmed Type Liraglutide [Victoza 3-Dylan] 1.8 mg SQ DAILY 06/17/16 11/04/16 History Lisinopril [Prinivil] 20 mg PO DAILY 06/17/16 11/04/16 History Multivitamin [Men's Multi-Vitamin] 1 each PO DAILY 06/17/16 11/04/16 History [place]-3 Fatty Acids/Fish Oil [Fish 1,000 mg PO DAILY 06/17/16 11/04/16 History Oil 1,000 mg Softgel] metFORMIN HCL [Glucophage] 1,000 mg PO BID 06/17/16 11/04/16 History Allergies Allergy/AdvReac Type Severity Reaction Status Date / Time No Known Allergies Allergy Verified 11/04/16 08:42 Objective - Vital Signs Vital signs: Vital Signs Temp 97.8 F 11/25/16 10:57 Pulse 67 11/25/16 10:57 Resp BP 128/70 11/25/16 10:57 Pulse Ox - Exam General: Patient is alert and oriented to time, place and person and cooperative with exam. He is not in acute distress. HEENT: No pallor, no icterus, no thyroid enlargement, no cervical lymphadenopathy. Chest: Bilateral equal breath sounds present. No wheezes, no crackles. Cardiovascular: Regular rate and rhythm. Abdomen: Soft, nontender, nondistended. Incisions - clean/dry and intact Integumentary: No active ulcers or discharge. Neurologic: Cranial nerves II-XII intact. Strength upper and lower extremities 5/5. No focal neurologic deficits. Gait is normal. Psychiatric: No anxiety or psychosis. No suicidal thoughts. - Labs CBC & Chem 7: 11/25/16 11:12 11/25/16 11:12 Assessment and Plan (1) Hypertension Status: Acute (2) Morbid obesity with BMI of 40.0-44.9, adult Status: Acute (3) Sleep apnea Status: Acute Plan: 1. Advance diet as per protocol 2. Increase physical activity 3. Start MVI 1 month post sx 4. Follow up in 3 weeks
== END | disposition home or self-care (01) ==
LOC: BARWHC3 09:58
PROVIDERS: ATTEND Surgery
DX: G47.33 Obstructive sleep apnea (adult) (pediatric) (principal); N20.0 Calculus of kidney; I10 Essential (primary) hypertension; E66.01 Morbid (severe) obesity due to excess calories; Z98.890 Other specified postprocedural states; Z98.84 Bariatric surgery status
CPT/HCPCS: 36415; 80053; 84134; 85027; 97803; 99211

== ENCOUNTER → 2016-12-16 | Outpatient (CLI) | payer BC ==
[2016-12-16 09:57] VITALS: BP 99/67; PULSE 65; TEMP 97.8; BMI 42.1
--- NOTE | 2016-12-16 10:28 | P.PN ---
Subjective Principal diagnosis: Status post lap scopic Eliezer-en-Y gastric bypass 11/16/16 46 years old male with morbid obesity initial BMI 49.1, height 5 feet 8.5 inches, weight 148.68 KG presents for bariatric surgery consultation. Patient has has undergo laparoscopic Eliezer-en-Y gastric bypass on 11/16/16 .His comorbid conditions include obstructive sleep apnea on CPAP, type 2 diabetes mellitus- resolved , hypertension, hypercholesterolemia. He is taking postoperative diet as per protocol. No abdominal pain. No nausea or vomiting. Regular bowel movements. He is . 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 Denies dysphagia. Cardiovascular: Denies chest pain, palpitations, dizziness, shortness of breath. Respiratory: Long-standing asthma well controlled with rescue inhalers. Gastrointestinal: No recent change in bowel habits, no abdominal pain, no nausea or vomiting. Denies reflux symptoms and no postprandial right upper quadrant pain. Integumentary: No skin ulcers or rash Genitourinary: No urinary incontinence, hematuria or dysuria Neurologic: No seizures, denies weakness in upper or lower extremities Musculoskeletal: Knee pain, ankle pain and forefoot pain Past Medical History Past Medical History: Diabetes Mellitus, Hypertension, Osteoarthritis (OA), Sleep Apnea/CPAP/BIPAP Additional Past Medical History / Comment(s): USES CPAP. History of Any Multi-Drug Resistant Organisms: None Reported Past Surgical History: Appendectomy, Hernia Repair Additional Past Surgical History / Comment(s): Kidney stones, umbilical hernia repair Past Anesthesia/Blood Transfusion Reactions: No Reported Reaction Past Psychological History: No Psychological Hx Reported Smoking Status: Never smoker Past Alcohol Use History: Occasional Additional Past Alcohol Use History / Comment(s): 6 beers /month Past Drug Use History: None Reported - Past Family History Father Family Medical History: Cancer Additional Family Medical History / Comment(s): kidney stones Medications and Allergies Home Medications Medication Instructions Recorded Confirmed Type Liraglutide [Victoza 3-Dylan] 1.8 mg SQ DAILY 06/17/16 11/04/16 History Lisinopril [Prinivil] 20 mg PO DAILY 06/17/16 11/04/16 History Multivitamin [Men's Multi-Vitamin] 1 each PO DAILY 06/17/16 11/04/16 History [place]-3 Fatty Acids/Fish Oil [Fish 1,000 mg PO DAILY 06/17/16 11/04/16 History Oil 1,000 mg Softgel] metFORMIN HCL [Glucophage] 1,000 mg PO BID 06/17/16 11/04/16 History Allergies Allergy/AdvReac Type Severity Reaction Status Date / Time No Known Allergies Allergy Verified 11/04/16 08:42 Objective - Vital Signs Vital signs: Vital Signs Temp 97.8 F 12/16/16 09:54 Pulse 65 12/16/16 09:54 Resp BP 99/67 12/16/16 09:54 Pulse Ox Intake & Output 12/15/16 12/16/16 12/16/16 18:59 06:59 18:59 Weight 127.505 kg - Exam General: Patient is alert and oriented to time, place and person and cooperative with exam. He is not in acute distress. HEENT: No pallor, no icterus, no thyroid enlargement Chest: Bilateral equal breath sounds present. No wheezes, no crackles. Cardiovascular: Regular rate and rhythm. Abdomen: Soft, nontender, nondistended. No right upper quadrant tenderness. Surgical incisions clean dry and intact. Integumentary: Bilateral lower extremity chronic venous dermatitis. No active ulcers or discharge. Neurologic: Cranial nerves II-XII intact. Strength upper and lower extremities 5/5. No focal neurologic deficits. Gait is normal. Psychiatric: No anxiety or psychosis. No suicidal thoughts. Assessment and Plan (1) Hypertension Status: Acute (2) Sleep apnea Status: Acute (3) Morbid obesity with BMI of 40.0-44.9, adult Status: Acute Plan: 1. Daily multivitamin 2. Increase physical activity as tolerated 3. Follow-up in bariatric center in 3 months 4. Follow-up with PCP regarding hypertension medications 5. Adjust CPAP machine 6. Attend bariatric support group meeting
== END | disposition home or self-care (01) ==
LOC: BARWHC3 08:54
PROVIDERS: ATTEND Surgery
DX: E66.01 Morbid (severe) obesity due to excess calories (principal); I10 Essential (primary) hypertension; G47.30 Sleep apnea, unspecified; E11.9 Type 2 diabetes mellitus without complications; Z68.41 Body mass index [BMI] 40.0-44.9, adult; Z79.899 Other long term (current) drug therapy
CPT/HCPCS: 97803; 99211

== ENCOUNTER → 2017-01-25 | Outpatient (CLI) | payer BC ==
[2017-01-25 10:09] LABS: CHCM 33.5; HDW 3.19; HGB 13.9 gm/dL (13.0-17.5); MCH 27.8 pg (25.0-35.0); MCHC 33.1 g/dL (31.0-37.0); RDW 15.2 % (11.5-15.5); WBC 7.7 k/uL (3.8-10.6)
[2017-01-25 11:23] LABS: Hemoglobin A1C 5.1 % (4.2-6.1)
[2017-01-25 14:09] LABS: ALT 40 U/L (21-72); AST 25 U/L (17-59); Alkaline Phosphatase 67 U/L (38-126); Anion Gap 9 mmol/L; Blood Urea Nitrogen 11 mg/dL (9-20); Carbon Dioxide 28 mmol/L (22-30); Chloride 104 mmol/L (98-107); Cholesterol 157 mg/dL (<200); Glucose 105 mg/dL (74-99); HDL Cholesterol 36 mg/dL (40-60); Iron 47 ug/dL (49-181); Magnesium 2.1 mg/dL (1.6-2.3); Non-African American GFR(MDRD) >60 (>60 ml/min/1.73 sqM); Phosphorous 3.5 mg/dL (2.5-4.5); Potassium 3.9 mmol/L (3.5-5.1); Sodium 141 mmol/L (137-145); Total Bilirubin 0.7 mg/dL (0.2-1.3); Total Protein 6.7 g/dL (6.3-8.2); Triglycerides 77 mg/dL (<150)
[2017-01-25 14:24] LABS: % Iron Saturation 15.3 % (20-50); Prealbumin 19 mg/dL (18-36); Total Iron Binding Capacity 307 ug/dL (261-462)
[2017-01-25 15:15] LABS: Vitamin B12 506 pg/mL (239-931)
== END | disposition home or self-care (01) ==
LOC: LABWHC1 09:35
PROVIDERS: ATTEND Surgery
DX: E66.01 Morbid (severe) obesity due to excess calories (principal); D50.8 Other iron deficiency anemias
CPT/HCPCS: 36415; 80053; 80061; 82306; 82525; 82607; 82728; 82746; 83036; 83540; 83550; 83735; 83970; 84100; 84134; 84255; 84425; 84443; 84590; 84630; 85027

== ENCOUNTER → 2017-02-15 | Outpatient (CLI) | payer BC ==
[2017-02-15 09:44] VITALS: BP 143/82; PULSE 62; RESP 16; TEMP 98; BMI 37.0
--- NOTE | 2017-02-15 11:24 | P.PN ---
Subjective Principal diagnosis: S/p gastric bypass Status post lap scopic Eliezer-en-Y gastric bypass 11/16/16 46 years old male with morbid obesity initial BMI 49.1, height 5 feet 8.5 inches, weight 148.68 KG presents for bariatric surgery follow up. Patient has undergone laparoscopic Eliezer-en-Y gastric bypass on 11/16/16 .His comorbid conditions include obstructive sleep apnea on CPAP, type 2 diabetes mellitus- resolved , hypertension resloved , hypercholesterolemiaresolved . . No abdominal pain. No nausea or vomiting. Regular bowel movements. He is . 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 Denies dysphagia. Cardiovascular: Denies chest pain, palpitations, dizziness, shortness of breath. Respiratory: Long-standing asthma well controlled with rescue inhalers. Gastrointestinal: No recent change in bowel habits, no abdominal pain, no nausea or vomiting. Denies reflux symptoms and no postprandial right upper quadrant pain. Integumentary: No skin ulcers or rash Genitourinary: No urinary incontinence, hematuria or dysuria Neurologic: No seizures, denies weakness in upper or lower extremities Musculoskeletal: Knee pain, ankle pain and forefoot pain Past Medical History Past Medical History: Diabetes Mellitus, Hypertension, Osteoarthritis (OA), Sleep Apnea/CPAP/BIPAP Additional Past Medical History / Comment(s): USES CPAP. History of Any Multi-Drug Resistant Organisms: None Reported Past Surgical History: Appendectomy, Hernia Repair Additional Past Surgical History / Comment(s): Kidney stones, umbilical hernia repair Past Anesthesia/Blood Transfusion Reactions: No Reported Reaction Past Psychological History: No Psychological Hx Reported Smoking Status: Never smoker Past Alcohol Use History: Occasional Additional Past Alcohol Use History / Comment(s): 6 beers /month Past Drug Use History: None Reported - Past Family History Father Family Medical History: Cancer Additional Family Medical History / Comment(s): kidney stones Allergies Allergy/AdvReac Type Severity Reaction Status Date / Time No Known Allergies Allergy Verified 11/04/16 08:42 Objective - Vital Signs Vital signs: Vital Signs Temp 98.0 F 02/15/17 09:36 Pulse 62 02/15/17 09:36 Resp 16 02/15/17 09:36 BP 143/82 02/15/17 09:36 Pulse Ox Intake & Output 02/14/17 02/15/17 02/15/17 18:59 06:59 18:59 Weight 112.094 kg - Exam General: Patient is alert and oriented to time, place and person and cooperative with exam. He is not in acute distress. HEENT: No pallor, no icterus, no thyroid enlargement Chest: Bilateral equal breath sounds present. No wheezes, no crackles. Cardiovascular: Regular rate and rhythm. Abdomen: Soft, nontender, nondistended. No right upper quadrant tenderness. Surgical incisions clean dry and intact. Integumentary: Bilateral lower extremity chronic venous dermatitis. No active ulcers or discharge. Neurologic: Cranial nerves II-XII intact. Strength upper and lower extremities 5/5. No focal neurologic deficits. Gait is normal. Psychiatric: No anxiety or psychosis. No suicidal thoughts. Assessment and Plan (1) Obesity (BMI 30-39.9) Status: Acute (2) Sleep apnea Status: Acute Plan: 1. Daily multivitamin 2. Increase physical activity as tolerated 3. Follow-up in bariatric center in 3 months 4. Attend bariatric support group meeting 5. Check iron levels during next visit
== END | disposition home or self-care (01) ==
LOC: BARWHC3 09:23
PROVIDERS: ATTEND Surgery
DX: E66.9 Obesity, unspecified (principal); G47.30 Sleep apnea, unspecified; Z68.39 Body mass index [BMI] 39.0-39.9, adult
CPT/HCPCS: 97803; 99211

== ENCOUNTER → 2017-05-31 | Outpatient (CLI) | payer BC ==
[2017-05-31 10:39] VITALS: BP 144/76; PULSE 58; RESP 15; TEMP 98.2; BMI 32.9
--- NOTE | 2017-05-31 11:16 | P.PN ---
Subjective Progress Note Date: 05/31/17 S/p gastric bypass Status post lap scopic Eliezer-en-Y gastric bypass 11/16/16 46 years old male with morbid obesity initial BMI 49.1, height 5 feet 8.5 inches, weight 148.68 KG presents for bariatric surgery follow up. Patient has undergone laparoscopic Eliezer-en-Y gastric bypass on 11/16/16 .His comorbid conditions include obstructive sleep apnea on CPAP- resolved, type 2 diabetes mellitus- resolved , hypertension resolved , hypercholesterolemia resolved . No abdominal pain. 1 episode of vomiting. Regular bowel movements. He is . 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 Denies dysphagia. Cardiovascular: Denies chest pain, palpitations, dizziness, shortness of breath. Respiratory: Long-standing asthma well controlled with rescue inhalers. Gastrointestinal: No recent change in bowel habits, no abdominal pain, no nausea or vomiting. Denies reflux symptoms and no postprandial right upper quadrant pain. Integumentary: No skin ulcers or rash Genitourinary: No urinary incontinence, hematuria or dysuria Neurologic: No seizures, denies weakness in upper or lower extremities Musculoskeletal: Knee pain, ankle pain and forefoot pain Past Medical History Past Medical History: Diabetes Mellitus, Hypertension, Osteoarthritis (OA), Sleep Apnea/CPAP/BIPAP Additional Past Medical History / Comment(s): USES CPAP. History of Any Multi-Drug Resistant Organisms: None Reported Past Surgical History: Appendectomy, Hernia Repair Additional Past Surgical History / Comment(s): Kidney stones, umbilical hernia repair Past Anesthesia/Blood Transfusion Reactions: No Reported Reaction Past Psychological History: No Psychological Hx Reported Smoking Status: Never smoker Past Alcohol Use History: Occasional Additional Past Alcohol Use History / Comment(s): 6 beers /month Past Drug Use History: None Reported - Past Family History Father Family Medical History: Cancer Additional Family Medical History / Comment(s): kidney stones Allergies Allergy/AdvReac Type Severity Reaction Status Date / Time No Known Allergies Allergy Verified 11/04/16 08:42 Objective - Vital Signs Vital signs: Vital Signs Temp 98.2 F 05/31/17 10:30 Pulse 58 L 05/31/17 10:30 Resp 15 05/31/17 10:30 BP 144/76 05/31/17 10:30 Pulse Ox Intake & Output 05/30/17 05/31/17 05/31/17 18:59 06:59 18:59 Weight 99.745 kg - Exam General: Patient is alert and oriented to time, place and person and cooperative with exam. He is not in acute distress. HEENT: No pallor, no icterus, no thyroid enlargement Chest: Bilateral equal breath sounds present. No wheezes, no crackles. Cardiovascular: Regular rate and rhythm. Abdomen: Soft, nontender, nondistended. No right upper quadrant tenderness. Surgical incisions clean dry and intact. Integumentary: Bilateral lower extremity chronic venous dermatitis. No active ulcers or discharge. Neurologic: Cranial nerves II-XII intact. Strength upper and lower extremities 5/5. No focal neurologic deficits. Gait is normal. Psychiatric: No anxiety or psychosis. No suicidal thoughts. Assessment and Plan (1) Hypertension Current Visit: No Status: Acute Code(s): I10 - ESSENTIAL (PRIMARY) HYPERTENSION SNOMED Code(s): 17692499 (2) Obesity (BMI 30-39.9) Current Visit: No Status: Acute Code(s): E66.9 - OBESITY, UNSPECIFIED SNOMED Code(s): 091288914 (3) Sleep apnea with use of continuous positive airway pressure (CPAP) Current Visit: No Status: Acute Code(s): G47.30 - SLEEP APNEA, UNSPECIFIED SNOMED Code(s): 61617137 (4) Type 2 diabetes mellitus Current Visit: No Status: Acute Code(s): E11.9 - TYPE 2 DIABETES MELLITUS WITHOUT COMPLICATIONS SNOMED Code(s): 08497875 Plan: 1. Daily multivitamin 2. Increase physical activity as tolerated 3. Follow-up in bariatric center in June 4. Attend bariatric support group meeting 5. Check CBC, CMP, iron and zinc levels
[2017-05-31 11:54] LABS: CHCM 34.1; HGB 13.7 gm/dL (13.0-17.5); MCH 26.8 pg (25.0-35.0); MCHC 32.5 g/dL (31.0-37.0); MCV 82.6 fL (80.0-100.0); Mean Platelet Volume 6.7; RBC 5.09 m/uL (4.30-5.90); RDW 13.8 % (11.5-15.5)
[2017-05-31 12:14] LABS: ALT 42 U/L (21-72); AST 27 U/L (17-59); Alkaline Phosphatase 49 U/L (38-126); Anion Gap 7 mmol/L; Blood Urea Nitrogen 17 mg/dL (9-20); Calcium 9.5 mg/dL (8.4-10.2); Carbon Dioxide 27 mmol/L (22-30); Chloride 104 mmol/L (98-107); Cholesterol 168 mg/dL (<200); Glucose 82 mg/dL (74-99); HDL Cholesterol 44 mg/dL (40-60); Magnesium 2.1 mg/dL (1.6-2.3); Non-African American GFR(MDRD) >60 (>60 ml/min/1.73 sqM); Phosphorus 4.1 mg/dL (2.5-4.5); Potassium 4.6 mmol/L (3.5-5.1); Sodium 138 mmol/L (137-145); Total Bilirubin 0.6 mg/dL (0.2-1.3); Total Protein 6.7 g/dL (6.3-8.2)
[2017-05-31 16:04] LABS: Iron Saturation 30.96 (15.00-50.00)
[2017-06-04 16:31] LABS: Selenium 160 mcg/L (63-160)
== END | disposition home or self-care (01) ==
LOC: BARWHC3 10:01
PROVIDERS: ATTEND Surgery
DX: Z48.815 Encounter for surgical aftercare following surgery on the digestive system (principal); I10 Essential (primary) hypertension; G47.30 Sleep apnea, unspecified; E11.9 Type 2 diabetes mellitus without complications; E66.01 Morbid (severe) obesity due to excess calories; D50.8 Other iron deficiency anemias; E46 Unspecified protein-calorie malnutrition; T56.894A Toxic effect of other metals, undetermined, initial encounter; Z68.42 Body mass index [BMI] 45.0-49.9, adult; Z98.84 Bariatric surgery status
CPT/HCPCS: 80053; 80061; 82306; 82525; 82607; 82728; 83036; 83540; 83550; 83735; 84100; 84134; 84255; 84425; 84443; 84590; 84630; 85027; 97803; 99211

== ENCOUNTER → 2017-06-14 | Outpatient (CLI) | payer BC ==
[2017-06-14 15:35] VITALS: BP 130/76; PULSE 58; RESP 16; TEMP 98.1; BMI 33.5
--- NOTE | 2017-06-14 15:40 | P.PN ---
Subjective Progress Note Date: 06/14/17 Status post lap scopic Eliezer-en-Y gastric bypass 11/16/16 46 years old male with morbid obesity initial BMI 49.1, height 5 feet 8.5 inches, weight 148.68 KG presents for bariatric surgery follow up. Patient has undergone laparoscopic Eliezer-en-Y gastric bypass on 11/16/16 .His comorbid conditions include obstructive sleep apnea on CPAP- resolved, type 2 diabetes mellitus- resolved , hypertension resolved , hypercholesterolemia resolved . No abdominal pain. Regular bowel movements. He is . 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 Denies dysphagia. Cardiovascular: Denies chest pain, palpitations, dizziness, shortness of breath. Respiratory: Long-standing asthma well controlled with rescue inhalers. Gastrointestinal: No recent change in bowel habits, no abdominal pain, no nausea or vomiting. Denies reflux symptoms and no postprandial right upper quadrant pain. Integumentary: No skin ulcers or rash Genitourinary: No urinary incontinence, hematuria or dysuria Neurologic: No seizures, denies weakness in upper or lower extremities Musculoskeletal: Knee pain, ankle pain and forefoot pain Past Medical History Past Medical History: Diabetes Mellitus, Hypertension, Osteoarthritis (OA), Sleep Apnea/CPAP/BIPAP Additional Past Medical History / Comment(s): USES CPAP. History of Any Multi-Drug Resistant Organisms: None Reported Past Surgical History: Appendectomy, Hernia Repair Additional Past Surgical History / Comment(s): Kidney stones, umbilical hernia repair Past Anesthesia/Blood Transfusion Reactions: No Reported Reaction Past Psychological History: No Psychological Hx Reported Smoking Status: Never smoker Past Alcohol Use History: Occasional Additional Past Alcohol Use History / Comment(s): 6 beers /month Past Drug Use History: None Reported - Past Family History Father Family Medical History: Cancer Additional Family Medical History / Comment(s): kidney stones Allergies Allergy/AdvReac Type Severity Reaction Status Date / Time No Known Allergies Allergy Verified 11/04/16 08:42 Objective - Vital Signs Vital signs: Vital Signs Temp 98.1 F 06/14/17 15:34 Pulse 58 L 06/14/17 15:34 Resp 16 06/14/17 15:34 BP 130/76 06/14/17 15:34 Pulse Ox Intake & Output 06/13/17 06/14/17 06/14/17 18:59 06:59 18:59 Weight 101.661 kg - Exam General: Patient is alert and oriented to time, place and person and cooperative with exam. He is not in acute distress. HEENT: No pallor, no icterus, no thyroid enlargement Chest: Bilateral equal breath sounds present. No wheezes, no crackles. Cardiovascular: Regular rate and rhythm. Abdomen: Soft, nontender, nondistended. No right upper quadrant tenderness. Surgical incisions clean dry and intact. Integumentary: Bilateral lower extremity chronic venous dermatitis. No active ulcers or discharge. Neurologic: Cranial nerves II-XII intact. Strength upper and lower extremities 5/5. No focal neurologic deficits. Gait is normal. Psychiatric: No anxiety or psychosis. No suicidal thoughts. Assessment and Plan (1) Hypertension Current Visit: No Status: Acute Code(s): I10 - ESSENTIAL (PRIMARY) HYPERTENSION SNOMED Code(s): 91315259 (2) Obesity (BMI 30-39.9) Current Visit: No Status: Acute Code(s): E66.9 - OBESITY, UNSPECIFIED SNOMED Code(s): 011562950 (3) Sleep apnea Current Visit: No Status: Acute Code(s): G47.30 - SLEEP APNEA, UNSPECIFIED SNOMED Code(s): 56036926 (4) Type 2 diabetes mellitus Current Visit: No Status: Acute Code(s): E11.9 - TYPE 2 DIABETES MELLITUS WITHOUT COMPLICATIONS SNOMED Code(s): 54668953 Plan: 1. Daily multivitamin 2. Increase physical activity as tolerated 3. Follow-up in bariatric center in 3 months 4. Attend bariatric support group meeting
== END | disposition home or self-care (01) ==
LOC: BARWHC3 15:26
PROVIDERS: ATTEND Surgery
DX: E66.01 Morbid (severe) obesity due to excess calories (principal); E11.9 Type 2 diabetes mellitus without complications; Z68.42 Body mass index [BMI] 45.0-49.9, adult; Z98.84 Bariatric surgery status; I10 Essential (primary) hypertension; M19.90 Unspecified osteoarthritis, unspecified site; G47.30 Sleep apnea, unspecified
CPT/HCPCS: 99211

== ENCOUNTER → 2017-09-15 | Outpatient (CLI) | payer BC ==
[2017-09-15 14:51] VITALS: BP 135/78; PULSE 65; TEMP 98.4; BMI 33.5
[2017-09-15 16:37] LABS: HCT 41.8 % (39.0-53.0); HGB 14.8 gm/dL (13.0-17.5); MCH 28.9 pg (25.0-35.0); MCHC 35.4 g/dL (31.0-37.0); MCV 81.7 fL (80.0-100.0); Mean Platelet Volume 6.7; Platelet Count 251 k/uL (150-450); RBC 5.11 m/uL (4.30-5.90); RDW 13.1 % (11.5-15.5)
[2017-09-15 16:38] LABS: INR 1.1 (<1.2); Partial Thromboplastin Time 24.4 sec (22.0-30.0); Prothrombin Time 10.4 sec (9.0-12.0)
[2017-09-15 16:44] LABS: ALT 40 U/L (21-72); AST 28 U/L (17-59); Albumin 4.5 g/dL (3.5-5.0); Alkaline Phosphatase 48 U/L (38-126); Anion Gap 9 mmol/L; Blood Urea Nitrogen 20 mg/dL (9-20); Calcium 10.4 mg/dL (8.4-10.2); Carbon Dioxide 31 mmol/L (22-30); Chloride 102 mmol/L (98-107); Cholesterol 173 mg/dL (<200); Glucose 86 mg/dL (74-99); HDL Cholesterol 53 mg/dL (40-60); LDL Cholesterol,Calculated 109 mg/dL (0-99); Magnesium 2.3 mg/dL (1.6-2.3); Phosphorus 4.4 mg/dL (2.5-4.5); Potassium 4.2 mmol/L (3.5-5.1); Sodium 142 mmol/L (137-145); Total Bilirubin 0.7 mg/dL (0.2-1.3); Total Protein 7.5 g/dL (6.3-8.2); Triglycerides 55 mg/dL (<150)
[2017-09-16 01:11] LABS: Iron Saturation 20.77 (15.00-50.00)
[2017-09-16 01:23] LABS: Vitamin D 25 Hydroxy 38.8 ng/mL (30.0-100.0)
[2017-09-16 01:58] LABS: Hemoglobin A1C 4.8 % (4.0-6.0)
[2017-09-16 02:15] LABS: Folate, Serum 21.1 ng/mL
[2017-09-16 02:28] LABS: Parathyroid Hormone Intact 34.8 pg/mL (14.0-72.0)
[2017-09-16 16:19] LABS: Zinc, Serum 76 ug/dL (60-130)
[2017-09-17 00:54] LABS: Vitamin B1 64 ug/L (38-122)
[2017-09-17 08:41] LABS: Vitamin A 60 ug/dL (38-106)
[2017-09-18 23:20] LABS: Selenium 130 mcg/L (63-160)
--- NOTE | 2017-10-29 07:11 | P.PN ---
Subjective Progress Note Date: 09/15/17 DATE OF SERVICE: 09/15/2017 CHIEF COMPLAINT: Status post gastric bypass HISTORY OF PRESENT ILLNESS: Salvador Huff is a 47-year-old male who comes in with long-standing morbid obesity. He is status post gastric bypass from by Dr. Montoya. He is 10 months out. He reports no dumping syndrome. No gastroesophageal reflux disease. His highest weight was 360 pounds. Today he comes in weighing 223 pounds. His body mass index is decreased from 54.1 down to 33.5. No reports of nausea or vomiting. No reports of abdominal pain. He is active including weight lifting. He report moderate-sized pannus which interferes with exercise. At height of 5 feet 8.5 inches, his ideal body weight is 163 pounds. His highest weight was 360 pounds. Today he comes in weighing 223 pounds. His body mass index is decreased from 54.1 down to 33.5. Percent excess weight loss is 69%. He is 60 pounds overweight. PAST MEDICAL HISTORY: 1. Morbid obesity. 2. Body mass index of 54.1 3. Osteoarthritis of the knees. 4. Osteoarthritis of the hips. 5. Osteoarthritis of the lower back. 6. Obstructive sleep apnea. 7. Hypertensive heart disease. 8. Diabetes type 2, [id number] 9. Kidney stones PAST SURGICAL HISTORY: 1. Umbilical hernia repair 2. Gastric bypass 3. Appendectomy HOME MEDICATIONS: 1. Multivitamin 2. Iron 3. Calcium ALLERGIES: Denies. SOCIAL HISTORY: No active tobacco use. History of alcohol use. FAMILY HISTORY: No family history of ulcerative colitis disease or Crohn's disease. Family history of morbid obesity. No lupus in the family. No reports of stomach or esophageal cancer. Family history of diabetes type 2. REVIEW OF ORGAN SYSTEMS: CONSTITUTIONAL: At height of 5 feet 8.5 inches, his ideal body weight is 163 pounds. His highest weight was 360 pounds. Today he comes in weighing 223 pounds. His body mass index is decreased from 54.1 down to 33.5. Percent excess weight loss is 69%. He is 60 pounds overweight. HEENT: Denies any active troubles with vision or hearing. No troubles with swallowing. ENDOCRINE: Resolved diabetes. No hypothyroidism. He is off all diabetic medications. CARDIOVASCULAR: No reports of palpitations or heart attacks or chest pain. Hypertension resolved. He is off all hypertensive medications. RESPIRATORY: Has daytime somnolence, now resolved. No asthma. GI: Denies any bright red blood per rectum. No diarrhea or constipation. No dumping syndrome. MUSCULOSKELETAL: Has lower back pain and joint pain. Has osteoarthritis of the knees resolved. NEURO: No headaches. No seizure disorders. PSYCH: No depression or suicidal ideation. RHEUMATOLOGIC: No lupus. No rheumatoid arthritis. HEMATOLOGIC: Denies any abnormal bleeding or bruising. No personal history of DVTs. SKIN: No rash. No skin cancer. PHYSICAL EXAM: VITAL SIGNS: Height 5 foot 8.5 inches, weight 223 pounds. BMI 33.5 Vital Signs Temp 98.4 F 09/15/17 14:50 Pulse 65 09/15/17 14:50 Resp BP 135/78 09/15/17 14:50 Pulse Ox GENERAL: Well-developed in no acute distress. HEENT: No scleral icterus. Extraocular movements grossly intact. Hears conversational speech. No nasal drainage. NECK: Supple without lymphadenopathy. CHEST: Nonlabored respirations with equal bilateral excursions. CARDIOVASCULAR: Regular rate and regular rhythm. Distal 2+ pulses. ABDOMEN: Obese, soft, nontender, nondistended. Moderate-sized pannus over 10 pounds. Mild hyperemia. MUSCULOSKELETAL: No clubbing, cyanosis. Gross strength 5/5 distal lower extremities. NEURO: No focal or lateralizing signs. Cranial nerves 2 through 12 grossly within normal limits. PSYCH: Appropriate affect. Alert and oriented to person, place and time. SKIN: Good skin turgor. Well perfused. ASSESSMENT: 1. Morbid obesity due to excess calories. 2. Body mass index of 54.1 to 33.5 3. Osteoarthritis of the knees, resolved 4. Osteoarthritis of the hips, resolved 5. Osteoarthritis of the lower back, improved 6. Obstructive sleep apnea, resolved 7. Hypertensive heart disease, resolved 8. Status post gastric bypass 9. Panniculitis. PLAN: 1. Recommend bariatric metabolic panel 2. Nystatin powder for panniculitis 3. Overall dietary goals of 75+ grams protein obtained 4. Continue with exercising 5. Follow-up November 2017, 1 year anniversary Laboratory Last Values WBC 9.0 k/uL (3.8-10.6) 09/15/17 15:37 RBC 5.11 m/uL (4.30-5.90) 09/15/17 15:37 Hgb 14.8 gm/dL (13.0-17.5) 09/15/17 15:37 Hct 41.8 % (39.0-53.0) 09/15/17 15:37 MCV 81.7 fL (80.0-100.0) 09/15/17 15:37 MCH 28.9 pg (25.0-35.0) 09/15/17 15:37 MCHC 35.4 g/dL (31.0-37.0) 09/15/17 15:37 RDW 13.1 % (11.5-15.5) 09/15/17 15:37 Plt Count 251 k/uL (150-450) 09/15/17 15:37 PT 10.4 sec (9.0-12.0) 09/15/17 15:37 INR 1.1 (<1.2) 09/15/17 15:37 APTT 24.4 sec (22.0-30.0) 09/15/17 15:37 Sodium 142 mmol/L (137-145) 09/15/17 15:37 Potassium 4.2 mmol/L (3.5-5.1) 09/15/17 15:37 Chloride 102 mmol/L (98-107) 09/15/17 15:37 Carbon Dioxide 31 mmol/L (22-30) H 09/15/17 15:37 Anion Gap 9 mmol/L 09/15/17 15:37 BUN 20 mg/dL (9-20) 09/15/17 15:37 Creatinine 0.80 mg/dL (0.66-1.25) 09/15/17 15:37 Est GFR (CKD-EPI)AfAm >90 (>60 ml/min/1.73 sqM) 09/15/17 15:37 Est GFR (CKD-EPI)NonAf >90 (>60 ml/min/1.73 sqM) 09/15/17 15:37 Glucose 86 mg/dL (74-99) 09/15/17 15:[address] Glu mg/dL 91 09/15/17 15:37 Hemoglobin A1c 4.8 % (4.0-6.0) 09/15/17 15:37 Calcium 10.4 mg/dL (8.4-10.2) H 09/15/17 15:37 Phosphorus 4.4 mg/dL (2.5-4.5) 09/15/17 15:37 Magnesium 2.3 mg/dL (1.6-2.3) 09/15/17 15:37 Iron 70 ug/dL (65-175) 09/15/17 15:37 TIBC 337 ug/dL (228-460) 09/15/17 15:37 Iron Saturation 20.77 (15.00-50.00) 09/15/17 15:37 Ferritin 73.6 ng/mL (22.0-322.0) 09/15/17 15:37 Total Bilirubin 0.7 mg/dL (0.2-1.3) 09/15/17 15:37 AST 28 U/L (17-59) 09/15/17 15:37 ALT 40 U/L (21-72) 09/15/17 15:37 Alkaline Phosphatase 48 U/L (38-126) 09/15/17 15:37 Total Protein 7.5 g/dL (6.3-8.2) 09/15/17 15:37 Albumin 4.5 g/dL (3.5-5.0) 09/15/17 15:37 Prealbumin 26.0 mg/dL (18.0-42.0) 09/15/17 15:37 Triglycerides 55 mg/dL (<150) 09/15/17 15:37 Cholesterol 173 mg/dL (<200) 09/15/17 15:37 LDL Cholesterol, Calc 109 mg/dL (0-99) H 09/15/17 15:37 HDL Cholesterol 53 mg/dL (40-60) 09/15/17 15:37 Vitamin A 60 ug/dL (38-106) 09/15/17 15:37 Vitamin B1 64 ug/L (38-122) 09/15/17 15:37 Vitamin B12 536.0 pg/mL (200.0-944.0) 09/15/17 15:37 Vitamin D 25-Hydroxy 38.8 ng/mL (30.0-100.0) 09/15/17 15:37 Folate 21.1 ng/mL 09/15/17 15:37 TSH 1.250 mIU/L (0.465-4.680) 09/15/17 15:37 PTH Intact 34.8 pg/mL (14.0-72.0) 09/15/17 15:37 Copper 1174 ug/L (665-1480) 09/15/17 15:37 Selenium 130 mcg/L (63-160) 09/15/17 15:37 Zinc 76 ug/dL (60-130) 09/15/17 15:37 Calcium elevated LDL elevated Recommend reduction of exogenous calcium Objective - Vital Signs Vital signs: Vital Signs Temp 98.4 F 09/15/17 14:50 Pulse 65 09/15/17 14:50 Resp BP 135/78 09/15/17 14:50 Pulse Ox Intake & Output 09/14/17 09/15/17 09/15/17 18:59 06:59 18:59 Weight 101.423 kg - Labs CBC & Chem 7: 09/15/17 15:37 09/15/17 15:37
== END | disposition home or self-care (01) ==
LOC: BARWHC3 13:28
PROVIDERS: ATTEND Surgery Plastic and Reconstructive Surgery
DX: Z48.815 Encounter for surgical aftercare following surgery on the digestive system (principal); E66.01 Morbid (severe) obesity due to excess calories; M47.9 Spondylosis, unspecified; M79.3 Panniculitis, unspecified; E11.9 Type 2 diabetes mellitus without complications; E21.1 Secondary hyperparathyroidism, not elsewhere classified; D50.9 Iron deficiency anemia, unspecified; K90.9 Intestinal malabsorption, unspecified; E55.9 Vitamin D deficiency, unspecified; K74.1 Hepatic sclerosis; N19 Unspecified kidney failure; K50.90 Crohn's disease, unspecified, without complications; Z98.890 Other specified postprocedural states; Z68.33 Body mass index [BMI] 33.0-33.9, adult; Z87.442 Personal history of urinary calculi; Z98.84 Bariatric surgery status
CPT/HCPCS: 36415; 80053; 80061; 82306; 82525; 82607; 82728; 82746; 83036; 83540; 83550; 83735; 83970; 84100; 84134; 84255; 84425; 84443; 84590; 84630; 85027; 85610; 85730; 99211

== ENCOUNTER → 2018-11-23 | Outpatient (CLI) | payer BC ==
[2018-11-23 16:16] VITALS: BP 151/83; PULSE 63; RESP 16; TEMP 98.5; BMI 38.2
--- NOTE | 2018-11-23 17:33 | P.PN ---
Subjective Progress Note Date: 11/23/18 HPI: He reports weight lifting and walks 4 miles a day. No abdominal pain or GERD. No fatigue. No issues. ABDOMEN: Unremarkable ASSESSMENT: 1. Morbid obesity 2. Gastric bypass PLAN: 1. Check bariatric labs 2. He has 40+ pound weight gain from his lowest. Risk of thyroid dysfunction 3. Recommend MyFitness Pal Objective - Vital Signs Vital signs: Vital Signs Temp 98.5 F 11/23/18 16:11 Pulse 63 11/23/18 16:11 Resp 16 11/23/18 16:11 BP 151/83 11/23/18 16:11 Pulse Ox 98 11/23/18 16:11 Intake & Output 11/22/18 11/23/18 11/23/18 18:59 06:59 18:59 Weight 115.847 kg
== END | disposition home or self-care (01) ==
LOC: BARWHC3 15:32
PROVIDERS: ATTEND Surgery Plastic and Reconstructive Surgery
DX: Z48.815 Encounter for surgical aftercare following surgery on the digestive system (principal); E66.01 Morbid (severe) obesity due to excess calories; Z68.38 Body mass index [BMI] 38.0-38.9, adult; Z98.84 Bariatric surgery status
CPT/HCPCS: 99211

== ENCOUNTER 2018-12-14 08:47 | Day surgery (SDC) | payer BC ==
[2018-12-12 08:45] VITALS: BMI 37.2
--- NOTE | 2018-12-14 07:40 | P.GSHP ---
History of Present Illness H&P Date: 12/14/18 CHIEF COMPLAINT: Colon screen HISTORY OF PRESENT ILLNESS: The patient is a 48-year-old male who presents for colon screen. Lower endoscopy was offered for further evaluation and management. PAST MEDICAL HISTORY: Please see list. PAST SURGICAL HISTORY: Please see list. MEDICATIONS: Please see list. ALLERGIES: Please see list. SOCIAL HISTORY: No illicit drug use FAMILY HISTORY: No reports of Crohn disease or ulcerative colitis. REVIEW OF ORGAN SYSTEMS: CONSTITUTIONAL: No reports of fevers or chills. PHYSICAL EXAM: VITAL SIGNS: Stable GENERAL: Well-developed pleasant in no acute distress. HEENT: No scleral icterus. Extraocular movements grossly intact. Moist buccal mucosa. NECK: Supple without lymphadenopathy. CHEST: Unlabored respirations. Equal bilateral excursions. CARDIOVASCULAR: Regular rate and rhythm. Distal 2+ pulses. ABDOMEN: Soft, nontender, nondistended. MUSCULOSKELETAL: No clubbing, cyanosis, or edema. ASSESSMENT: 1. Colon screen. PLAN: 1. Recommend proceeding with a lower endoscopy Past Medical History Past Medical History: Diabetes Mellitus, Hypertension, Osteoarthritis (OA), Sleep Apnea/CPAP/BIPAP Additional Past Medical History / Comment(s): KIDNEY STONE ," DIABETIC -RESOLVED SINCE SURGERY" History of Any Multi-Drug Resistant Organisms: None Reported Past Surgical History: Appendectomy, Bariatric Surgery, Hernia Repair Additional Past Surgical History / Comment(s): SURGERY FOR Kidney stones, umbilical hernia repair- gastric bypass 11-16-16 [facility] Past Anesthesia/Blood Transfusion Reactions: No Reported Reaction Smoking Status: Former smoker - Past Family History Father Family Medical History: Cancer Additional Family Medical History / Comment(s): kidney stones Medications and Allergies Home Medications Medication Instructions Recorded Confirmed Type Ferrous Sulfate [Feosol] 325 mg PO DAILY 02/19/17 12/12/18 History Multivitamin [Men's Multi-Vitamin] 1 each PO DAILY 02/19/17 12/12/18 History Calcium Citrate/Vitamin D3 1 each PO TID 05/31/17 12/12/18 History [Calcium Cit 315-Vit D3 250mg Tab] Allergies Allergy/AdvReac Type Severity Reaction Status Date / Time DUST,GRASS Allergy CONGESTION Uncoded 12/12/18 08:22
[~2018-12-14 08:47] MED LIST changes: -DEXAMETHASONE SOD PHOSPHATE 10 MG/ML 1 ML VIAL IV ONE; -HYDROmorphone 1 MG/ML 1 ML SYRINGE IVP PRN; +LACTATED RINGERS 1,000 ML IV SCH; -MIDAZOLAM 2 MG/2 ML VIAL IV PRN; -ONDANSETRON 4 MG/2 ML VIAL IVP ONE; -SCOPOLAMINE 1.5MG/72HR PATCH TRANSDERM ONE; -ceFAZolin 3 GM in SODIUM CHLORIDE 0.9% 100 ML IVPB ONE
[2018-12-14 09:21] VITALS: TEMP 97.8
[2018-12-14] MEDS ORDERED: PROPOFOL 10 MG/ML 20 ML VIAL IV ONE (09:32)
[2018-12-14] MEDS ORDERED: LIDOCAINE 1% INJ 10MG/ML (20 ML MDV) ONE (09:32)
--- NOTE | 2018-12-14 09:52 | P.PCN ---
Date of Procedure: 12/14/18 Description of Procedure: PREOPERATIVE DIAGNOSIS: Colonoscopy screening, first Family history colon polyps POSTOPERATIVE DIAGNOSIS: Colonoscopy screening, first Family history colon polyps Poor prep OPERATION: Colonoscopy to the ileocecal valve SURGEON: Roxy Severino MD. ANESTHESIA: MAC. INDICATIONS: The patient is a 48-year-old female who presents for his first colonoscopy screening. Benefits and risks were described and informed consent was obtained. DESCRIPTION OF PROCEDURE: The patient had undergone Gatorade, MiraLAX and Dulcolax prep. He had been brought into the operating room and laid in the left lateral decubitus position. After adequate intravenous sedation, the rectum was examined with 2% lidocaine jelly. No external hemorrhoids were encountered. The rectal tone was within normal limits. No lesions were palpated in the rectal vault. An Olympus colonoscope was advanced until the ileocecal valve. The prep was poor with moderate liquid stool. No scattered diverticulosis was encountered. No LARGE colonic polyps were found. No evidence of focal colitis was found. Retroflexion of the scope demonstrated grade 1 internal hemorrhoids without active bleeding or inflammation. The colon was desufflated. The patient had tolerated the procedure well. Withdrawal time was over 6 minutes. FINDINGS: Aronchick preparation quality scale 4 (1-5) Internal hemorrhoids, grade 1 No external prolapsed hemorrhoids. No arteriovenous malformations. No adenomatous polyps. No focal colitis. Poor prep RECOMMENDATIONS: Lower endoscopy in 5 years, 2023, due to poor prep and family history. Recommend two day liquid diet colon prep Plan - Discharge Summary Discharge Rx Participant: Yes New Discharge Prescriptions: No Action Multivitamin [Men's Multi-Vitamin] 1 each PO DAILY Ferrous Sulfate [Feosol] 325 mg PO DAILY Calcium Citrate/Vitamin D3 [Calcium Cit 315-Vit D3 250mg Tab] 1 each PO TID Discharge Medication List Ferrous Sulfate [Feosol] 325 mg PO DAILY 02/19/17 [History] Multivitamin [Men's Multi-Vitamin] 1 each PO DAILY 02/19/17 [History] Calcium Citrate/Vitamin D3 [Calcium Cit 315-Vit D3 250mg Tab] 1 each PO TID 05/31/17 [History] Follow up Appointment(s)/Referral(s): Roxy Severino MD [STAFF PHYSICIAN] - As Needed Patient Instructions/Handouts: Colonoscopy (DC), *Surgery [facility] - (Anesthesia) Endoscopy Discharge Instructions Activity/Diet/Wound Care/Special Instructions: Repeat colonoscopy 5 years, 2023 Discharge Disposition: HOME SELF-CARE
[2018-12-14 10:11] VITALS: BP 119/74; PULSE 60; RESP 18
== END 2018-12-14 10:55 | disposition home or self-care (01) ==
LOC: ORWHC2ENDO 08:47
PROVIDERS: ATTEND Surgery Plastic and Reconstructive Surgery
DX: Z12.11 Encounter for screening for malignant neoplasm of colon (principal); Z83.71 Family history of colonic polyps; K64.8 Other hemorrhoids; E11.9 Type 2 diabetes mellitus without complications; I10 Essential (primary) hypertension; M19.90 Unspecified osteoarthritis, unspecified site; G47.30 Sleep apnea, unspecified; Z99.89 Dependence on other enabling machines and devices; Z87.891 Personal history of nicotine dependence; Z98.84 Bariatric surgery status; Z87.442 Personal history of urinary calculi
CPT/HCPCS: J2001; J2704; G0105; 45378

== ENCOUNTER → 2019-01-11 | Outpatient (CLI) | payer BC ==
[2019-01-11 12:55] VITALS: BP 117/60; PULSE 61; TEMP 98.5; BMI 37.5
--- NOTE | 2019-01-11 13:12 | P.PN ---
Subjective Progress Note Date: 01/11/19 DATE OF SERVICE: 01/11/2019 CHIEF COMPLAINT: Status post gastric bypass HISTORY OF PRESENT ILLNESS: Salvador Huff is a 48-year-old male who comes is status post gastric bypass from 11/16/2016. He is 2 years out. He had moderate weight regain of 30+ pounds in 1 year. He has completed a colonoscopy. He has diminished his caloric intake. No reports of abdominal pain. His highest weight was 360 pounds. Today he comes in weighing 250 pounds from 255 pounds 2 months ago. He has lost 5 pounds in 2 months. His body mass index is decreased from 54.1 down to 37.5. At height of 5 feet 8.5 inches, his ideal body weight is 163 pounds. Lifetime weight loss is 110 pounds. Percent excess weight loss is 56 %. He is 87 pounds overweight. PAST MEDICAL HISTORY: 1. Morbid obesity. 2. Body mass index of 54.1 3. Osteoarthritis of the knees. 4. Osteoarthritis of the hips. 5. Osteoarthritis of the lower back. 6. Obstructive sleep apnea. 7. Hypertensive heart disease. 8. Diabetes type 2, [id number] 9. Kidney stones PAST SURGICAL HISTORY: 1. Umbilical hernia repair 2. Gastric bypass 3. Appendectomy HOME MEDICATIONS: Home Medications Medication Instructions Recorded Confirmed Ferrous Sulfate [Feosol] 325 mg PO DAILY 02/19/17 01/11/19 Multivitamin [Men's Multi-Vitamin] 1 each PO DAILY 02/19/17 01/11/19 Calcium Citrate/Vitamin D3 1 each PO TID 05/31/17 01/11/19 [Calcium Cit 315-Vit D3 250mg Tab] ALLERGIES: Denies. SOCIAL HISTORY: No active tobacco use. History of alcohol use. FAMILY HISTORY: No family history of ulcerative colitis disease or Crohn's disease. Family history of morbid obesity. No lupus in the family. No reports of stomach or esophageal cancer. Family history of diabetes type 2. REVIEW OF ORGAN SYSTEMS: CONSTITUTIONAL: At height of 5 feet 8.5 inches, his ideal body weight is 163 pounds. His highest weight was 360 pounds. Today he comes in weighing 223 pounds. His body mass index is decreased from 54.1 down to 33.5. Percent excess weight loss is 69%. He is 60 pounds overweight. HEENT: Denies any active troubles with vision or hearing. No troubles with swallowing. ENDOCRINE: Resolved diabetes. No hypothyroidism. He is off all diabetic medications. CARDIOVASCULAR: No reports of palpitations or heart attacks or chest pain. Hypertension resolved. He is off all hypertensive medications. RESPIRATORY: Has daytime somnolence, now resolved. No asthma. GI: Denies any bright red blood per rectum. No diarrhea or constipation. No dumping syndrome. MUSCULOSKELETAL: Has lower back pain and joint pain. Has osteoarthritis of the knees resolved. NEURO: No headaches. No seizure disorders. PSYCH: No depression or suicidal ideation. RHEUMATOLOGIC: No lupus. No rheumatoid arthritis. HEMATOLOGIC: Denies any abnormal bleeding or bruising. No personal history of DVTs. SKIN: No rash. No skin cancer. PHYSICAL EXAM: VITAL SIGNS: Height 5 foot 8.5 inches, weight 250 pounds. BMI 37.5 Vital Signs Temp 98.5 F 01/11/19 12:37 Pulse 61 01/11/19 12:37 Resp BP 117/60 01/11/19 12:37 Pulse Ox GENERAL: Well-developed in no acute distress. HEENT: No scleral icterus. Extraocular movements grossly intact. Hears conversational speech. No nasal drainage. NECK: Supple without lymphadenopathy. CHEST: Nonlabored respirations with equal bilateral excursions. CARDIOVASCULAR: Regular rate and regular rhythm. Distal 2+ pulses. ABDOMEN: Obese, soft, nontender, nondistended. MUSCULOSKELETAL: No clubbing, cyanosis. Gross strength 5/5 distal lower extremities. NEURO: No focal or lateralizing signs. Cranial nerves 2 through 12 grossly within normal limits. PSYCH: Appropriate affect. Alert and oriented to person, place and time. SKIN: Good skin turgor. Well perfused. MEDICAL REPORT: COLON FINDINGS: Aronchick preparation quality scale 4 (1-5) Internal hemorrhoids, grade 1 No external prolapsed hemorrhoids. No arteriovenous malformations. No adenomatous polyps. No focal colitis. Poor prep ASSESSMENT: 1. Morbid obesity due to excess calories. 2. Body mass index of 54.1 to 37.5 3. Osteoarthritis of the knees 4. Osteoarthritis of the hips, resolved 5. Osteoarthritis of the lower back, improved 6. Obstructive sleep apnea, resolved 7. Hypertensive heart disease, resolved 8. Status post gastric bypass 9. Panniculitis. PLAN: 1. He reports knee pain and recommend hot yoga for osteoarthritis 2. Recommend bariatric labs 3. Continue journal of [employer] 4. Recommend colonoscopy in 5 years and Suprep for future Laboratory Last Values WBC 5.9 k/uL (3.8-10.6) 01/11/19 13:30 RBC 4.94 m/uL (4.30-5.90) 01/11/19 13:30 Hgb 14.2 gm/dL (13.0-17.5) 01/11/19 13:30 Hct 41.8 % (39.0-53.0) 01/11/19 13:30 MCV 84.6 fL (80.0-100.0) 01/11/19 13:30 MCH 28.7 pg (25.0-35.0) 01/11/19 13:30 MCHC 33.9 g/dL (31.0-37.0) 01/11/19 13:30 RDW 13.3 % (11.5-15.5) 01/11/19 13:30 Plt Count 225 k/uL (150-450) 01/11/19 13:30 PT 10.1 sec (9.0-12.0) 01/11/19 13:30 INR 0.9 (<1.2) 01/11/19 13:30 APTT 26.4 sec (22.0-30.0) 01/11/19 13:30 Sodium 141 mmol/L (135-145) 01/11/19 13:30 Potassium 4.3 mmol/L (3.5-5.5) 01/11/19 13:30 Chloride 106 mmol/L (96-109) 01/11/19 13:30 Carbon Dioxide 29.7 mmol/L (21.6-31.8) 01/11/19 13:30 Anion Gap 5.30 mmol/L (4.00-12.00) 01/11/19 13:30 BUN 17.0 mg/dL (9.0-27.0) 01/11/19 13:30 Creatinine 1.0 mg/dL (0.6-1.5) 01/11/19 13:30 Est GFR (CKD-EPI)AfAm 101.3 (60.0-200.0) 01/11/19 13:30 Est GFR (CKD-EPI)NonAf 87.4 (60.0-200.0) 01/11/19 13:30 BUN/Creatinine Ratio 17.00 Ratio (12.00-20.00) 01/11/19 13:30 Glucose 88 mg/dL (70-110) 01/11/19 13:[address] Glu mg/dL 108 01/11/19 13:30 Hemoglobin A1c 5.4 % (4.0-6.0) 01/11/19 13:30 Calcium 9.3 mg/dL (8.7-10.3) 01/11/19 13:30 Phosphorus 3.8 mg/dL (2.4-5.1) 01/11/19 13:30 Magnesium 2.0 mg/dL (1.5-2.4) 01/11/19 13:30 Iron 78 ug/dL (65-175) 01/11/19 13:30 TIBC 305 ug/dL (228-460) 01/11/19 13:30 Iron Saturation 25.57 (15.00-50.00) 01/11/19 13:30 Ferritin 91.1 ng/mL (22.0-322.0) 01/11/19 13:30 Total Bilirubin 0.6 mg/dL (0.3-1.2) 01/11/19 13:30 AST 32 U/L (14-35) 01/11/19 13:30 ALT 28 U/L (10-49) 01/11/19 13:30 Alkaline Phosphatase 52 U/L (41-126) 01/11/19 13:30 Total Protein 6.2 g/dL (6.2-8.2) 01/11/19 13:30 Albumin 4.20 g/dL (3.80-4.90) 01/11/19 13:30 Globulin 2.0 g/dL (1.6-3.3) 01/11/19 13:30 Albumin/Globulin Ratio 2.10 g/dL (1.60-3.17) 01/11/19 13:30 Prealbumin 24.0 mg/dL (18.0-42.0) 01/11/19 13:30 Triglycerides 157.0 mg/dL (0.0-149.0) H 01/11/19 13:30 Cholesterol 178 mg/dL (0-200) 01/11/19 13:30 LDL Cholesterol, Calc 101.6 mg/dL (0.0-131.0) 01/11/19 13:30 VLDL Cholesterol, Calc 31.40 mg/dL (5.00-40.00) 01/11/19 13:30 HDL Cholesterol 45.0 mg/dL (40.0-60.0) 01/11/19 13:30 Cholesterol/HDL Ratio 3.96 01/11/19 13:30 Vitamin A 60 ug/dL (38-106) 01/11/19 13:30 Vitamin B1 69 ug/L (38-122) 01/11/19 13:30 Vitamin B12 602.0 pg/mL (200.0-944.0) 01/11/19 13:30 Vitamin D 25-Hydroxy 27.1 ng/mL (30.0-100.0) L 01/11/19 13:30 Folate 19.3 ng/mL 01/11/19 13:30 TSH 1.010 uIU/mL (0.350-5.500) 01/11/19 13:30 PTH Intact 34.6 pg/mL (14.0-72.0) 01/11/19 13:30 Copper 961 ug/L (665-1480) 01/11/19 13:30 Selenium 120 mcg/L (63-160) 01/11/19 13:30 Zinc 58 ug/dL (60-130) L 01/11/19 13:30 Zinc is low Vitamin D is low Objective - Vital Signs Vital signs: Vital Signs Temp 98.5 F 01/11/19 12:37 Pulse 61 01/11/19 12:37 Resp BP 117/60 01/11/19 12:37 Pulse Ox Intake & Output 01/10/19 01/11/19 01/11/19 18:59 06:59 18:59 Weight 113.67 kg - Labs CBC & Chem 7: 01/11/19 13:30 01/11/19 13:30
[2019-01-11 13:46] LABS: HCT 41.8 % (39.0-53.0); HGB 14.2 gm/dL (13.0-17.5); MCH 28.7 pg (25.0-35.0); MCHC 33.9 g/dL (31.0-37.0); MCV 84.6 fL (80.0-100.0); Mean Platelet Volume 6.7; Platelet Count 225 k/uL (150-450); RBC 4.94 m/uL (4.30-5.90); RDW 13.3 % (11.5-15.5); WBC 5.9 k/uL (3.8-10.6)
[2019-01-11 14:00] LABS: INR 0.9 (<1.2); Partial Thromboplastin Time 26.4 sec (22.0-30.0); Prothrombin Time 10.1 sec (9.0-12.0)
[2019-01-11 18:44] LABS: African American GFR (CKD) 101.3 (60.0-200.0); Albumin 4.2 g/dL (3.80-4.90); Albumin/Globulin Ratio 2.1 (1.60-3.17); Anion Gap 5.3 mmol/L (4.00-12.00); Calcium 9.3 mg/dL (8.7-10.3); Carbon Dioxide 29.7 mmol/L (21.6-31.8); LDL Cholesterol,Calculated 101.6 mg/dL (0.0-131.0); Phosphorus 3.8 mg/dL (2.4-5.1); Potassium 4.3 mmol/L (3.5-5.5); Total Bilirubin 0.6 mg/dL (0.3-1.2); Total Protein 6.2 g/dL (6.2-8.2); VLDL Calculation 31.4 mg/dL (5.00-40.00)
[2019-01-11 19:02] LABS: Iron Saturation 25.57 (15.00-50.00)
[2019-01-11 19:04] LABS: Vitamin D 25 Hydroxy 27.1 ng/mL (30.0-100.0)
[2019-01-11 19:08] LABS: Folate, Serum 19.3 ng/mL
[2019-01-11 19:11] LABS: Parathyroid Hormone Intact 34.6 pg/mL (14.0-72.0)
[2019-01-11 21:55] LABS: Hemoglobin A1C 5.4 % (4.0-6.0)
[2019-01-12 13:05] LABS: Zinc, Serum 58 ug/dL (60-130)
[2019-01-12 13:41] LABS: Vit B1(Thiamine) 69 ug/L (38-122)
[2019-01-13 06:45] LABS: Vitamin A 60 ug/dL (38-106)
[2019-01-14 17:30] LABS: Selenium 120 mcg/L (63-160)
== END | disposition home or self-care (01) ==
LOC: BARWHC3 12:23
PROVIDERS: ATTEND Surgery Plastic and Reconstructive Surgery
DX: Z48.815 Encounter for surgical aftercare following surgery on the digestive system (principal); E66.01 Morbid (severe) obesity due to excess calories; M17.0 Bilateral primary osteoarthritis of knee; M47.816 Spondylosis without myelopathy or radiculopathy, lumbar region; M79.3 Panniculitis, unspecified; Z68.37 Body mass index [BMI] 37.0-37.9, adult; Z98.84 Bariatric surgery status
CPT/HCPCS: 80053; 80061; 82306; 82525; 82607; 82728; 82746; 83036; 83540; 83550; 83735; 83970; 84100; 84134; 84255; 84425; 84443; 84590; 84630; 85027; 85610; 85730; 99211